=== PATIENT | female | born 1950 | race African-American/Black ===

== ENCOUNTER → 2017-09-05 09:31 | Outpatient (CLI) | payer MEDICARE, OTHER, SELFPAY ==
[2017-09-05 14:33] LABS: Anion Gap 10.5 mEq/L (5-15); Blood Urea Nitrogen 15 mg/dL (7-18); Carbon Dioxide 31 mmol/L (21.0-32.0); Chloride 102 mmol/L (98-107); Creatinine,Serum 0.83 mg/dL (0.55-1.02); Estimated Glomerular Filt Rate 69 ml/min (>60); GFR (African American) 83 ML/MIN (>60); Glucose 109 mg/dL (74-106); Potassium 3.5 mmoL/L (3.5-5.1); Sodium 140 mmol/L (136-145)
[2017-09-06 07:18] LABS: Creatinine, Urine 106.5 mg/dL (Not Estab.); Microalbumin, Urine 81.6 ug/mL (Not Estab.)
== END ==
PROVIDERS: PCP Physician Assistant; Visit Provider Internal Medicine Nephrology
DX: N18.1 Chronic kidney disease, stage 1 (principal); R80.9 Proteinuria, unspecified
CPT/HCPCS: 36415; 80048; 82043

== ENCOUNTER → 2018-12-08 07:00 | Outpatient (CLI) | payer MEDICARE, OTHER, SELFPAY ==
[2018-12-08 07:11] LABS: Microscopic, Urine URINE MICROSCOPIC (MICROSCOPIC)
[2018-12-08 14:02] LABS: Basophils % 0.5 % (0.1-2.0); Eosinophils # 0.4 K/mm3 (0.0-0.4); Eosinophils % 4.9 % (0.1-12.0); Hematocrit 39.8 % (37.0-47.0); Hemoglobin 12.7 g/dL (12.2-16.2); Lymphocytes # 1.9 K/mm3 (0.7-4.5); Lymphocytes % 25.4 % (10-50); Mean Corpuscular HGB Conc 31.8 g/dL (31.8-35.4); Mean Corpuscular Hemoglobin 29.6 pg (27.0-31.2); Mean Corpuscular Volume 92.9 fl (81-99); Mean Platelet Volume 7.9 fl (7.4-10.4); Monocytes # 0.4 K/mm3 (0.1-1.0); Monocytes % 5.1 % (1.7-9.3); Neutrophils # 4.7 K/mm3 (1.8-7.8); Neutrophils % 64.3 % (37.0-80.0); Platelet Count 287 K/mm3 (142-424); Red Blood Count 4.28 M/mm3 (4.20-5.40); Red Cell Distribution Width 13.5 % (11.5-17.5); White Blood Count 7.4 K/mm3 (4.8-10.8)
[2018-12-08 14:09] LABS: Appearance,Urine CLEAR (Clear); Bilirubin,Urine Negative (Negative); Blood, Urine TRACE-I (Negative); Color,Urine YELLOW (Yellow); Glucose,Urine (UA) Negative (Negative); Ketones,Urine Negative (Negative); Leukocyte Esterase,Urine Negative (Negative); Nitrate,Urine Negative (Negative); PH,Urine 5.5 (5.0-8.5); Protein,Urine Negative (Negative); Specific Gravity, Urine 1.025 (1.005-1.030); Urobilinogen,Urine 0.2 EU/dl (0.2)
[2018-12-08 14:16] LABS: Bacteria,Urine 1+ /lpf; RBC,Urine Occasional #/hpf (0-3)
[2018-12-08 14:58] LABS: Albumin Level 3.4 gm/dL (3.4-5.0); Anion Gap 14.6 mEq/L (5-15); Blood Urea Nitrogen 16 mg/dL (7-18); Calcium 8.6 mg/dL (8.5-10.1); Carbon Dioxide 27 mmol/L (21.0-32.0); Chloride 106 mmol/L (98-107); Creatinine,Serum 0.82 mg/dL (0.55-1.02); Estimated Glomerular Filt Rate 69 ml/min (>60); GFR (African American) 84 ML/MIN (>60); Glucose 125 mg/dL (74-106); Phosphorous 4.4 mg/dL (2.4-4.9); Potassium 3.6 mmoL/L (3.5-5.1); Sodium 144 mmol/L (136-145); Uric Acid 6.3 mg/dL (2.6-7.2)
[2018-12-08 16:20] LABS: Hemoglobin A1C 6.8 % (0.0-7.0)
[2018-12-10 05:38] LABS: Creatinine, Urine 117.4 mg/dL (Not Estab.); Microalbumin, Urine 118.8 ug/mL (Not Estab.)
== END ==
PROVIDERS: PCP Physician Assistant; Visit Provider Hospitalist
DX: E11.9 Type 2 diabetes mellitus without complications (principal); R80.9 Proteinuria, unspecified; N18.1 Chronic kidney disease, stage 1
CPT/HCPCS: 36415; 80069; 81001; 82043; 82570; 83036; 84550; 85025

== ENCOUNTER → 2020-11-27 10:13 | Outpatient (CLI) | payer MEDICARE, OTHER, SELFPAY ==
--- NOTE | 2020-11-27 10:17 | NM_ITS ---
APPROVED REPORT Exam: Nuclear Stress Test Indication: HTN, D.M., HYPERLIPIDEMIA, ABN EKG Patient Location: htn, Stress Tech: Farzana Theodore PA Tech:Nadine Farias, ARRT, RT (R)(N) Ht: 5 ft 5 in Wt: 236 lbs Bra Size: 48K HR: 62 bpm BP: 132/70 mmHg BSA: 2.12 m2 BMI: 39.2 History: HTN, D.M., HYPERLIPIDEMIA, ABN EKG Procedure: Patient received a 0.4 mg of intravenous Lexiscan, resting heart rate 62 bpm, resting blood pressure 132/70 mmHg, with Lexiscan maximum heart rate achived was 91 bpm which is % of the maximum predicted heart rate and blood pressure was 132/79 mmHg. MILD C.P. Cardiac Stress and Resting SPECT Images: Cardiac Stress and Resting SPECT images were obtained using technetium 99m Myoview 29.8 mCi stress and 9.69 mCi at rest. Normal EF 72%. No wall motion abnormalities. No reversible or fixed defects. Conclusion: Normal exam. Electronically signed by : Kashmir Koroma MD 12/04/2020 13:12:13
--- NOTE | 2020-11-27 10:17 | CA_ITS ---
APPROVED REPORT Buy Boat Operator: CT Laterality: Bilateral Study Quality: Adequate Indications: right carotid bruit Risk Factors Hypertension: Hyperlipidemia Diabetes Doppler Spectral Velocity Analysis ECA (R) 39.00/ cm/s ECA (L) 35.00/ cm/s dICA (R) 64.90/28.50 cm/s dICA (L) 87.10/37.10 cm/s Vic (R) 61.10/26.50 cm/s Vic (L) 67.40/32.10 cm/s pICA (R) 34.80/10.70 cm/s pICA (L) 48.10/16.60 cm/s dCCA (R) 79.20/19.50 cm/s dCCA (L) 42.60/13.60 cm/s pCCA (R) 86.70/17.00 cm/s pCCA (L) 52.60/11.90 cm/s Vert (R) 26.90/ cm/s Vert (L) 45.90/ cm/s ICA/CCA 0.82 ICA/CCA 2.04 Findings Duplex evaluation demonstrates stenosis of the right proximal internal carotid artery <20% with PSV <140 cm/sec, EDV <100 cm/sec, and IC/CC Ratio <4.0. Duplex evaluation demonstrates stenosis of the left proximal internal carotid artery <20% with PSV <140 cm/sec, EDV <100 cm/sec, and IC/CC Ratio <4.0. Duplex evaluation demonstrates antegrade flow of the bilateral Vertebral Arteries. Conclusion Duplex evaluation demonstrates stenosis of the right proximal internal carotid artery <20% with PSV <140 cm/sec, EDV <100 cm/sec, and IC/CC Ratio <4.0. Duplex evaluation demonstrates stenosis of the left proximal internal carotid artery <20% with PSV <140 cm/sec, EDV <100 cm/sec, and IC/CC Ratio <4.0. Duplex evaluation demonstrates antegrade flow of the bilateral Vertebral Arteries. Electronically signed by : Kashmir Koroma MD 11/27/2020 15:53:43
--- NOTE | 2020-11-27 10:17 | CA_ITS ---
APPROVED REPORT Exam: Pharmacologic Technologist: Farzana Theodore Ht: 5 ft 5 in Wt: 236 lbs BSA: 2.12 m2 HR: 62 bpm BP: 132/70 mmHg Indications: Abnormal ekg, Heart murmur, bilateral bruit Medical History Medications: Aspirin,,,,, Pravastatin,,,,, Metformin,,,,, Losartan,,,,, Allopurinol,,,,, Albuterol,,,,, CHlorthalidone,,,,, MiraLAX,,,,, Multivitamin,,,,, Levothyoxine,,,,, Stress Test Details Test: LEXISCAN HR Resting HR: 67 bpm Max Heart Rate (APMHR): 150.133046 bpm Max HR Achieved: 93 bpm Target HR (85% APMHR): 127.282763 bpm % of APMHR: 62.00 Recovery HR: 68 bpm BP Resting BP: 132/70 mmHg Max BP: 132/70 mmHg Recovery BP: 125.0/68.0 mmHg ECG Clinical Exercise duration: 04:04 min Highest Stage Achieved: Exercise capacity: 1.0 METs Stress ECG Conclusion Symptoms: Chest burning present, mild shortness of air Arrhythmias/Ectopy: PVC noted ST-T Changes: < 1.[address] segment changes. Electronically signed by : Demetrio Sorto, 12/01/2020 08:36:24
--- NOTE | 2020-11-27 14:00 | HMH.ITSHM ---
Current Home Medications as stated by this patient Ban Patton or service support representative. []PRAVASTATIN SYNTHROID METFORMIN LOSARTAN ALLOPURINOL ASA VITAMINS
== END ==
PROVIDERS: PCP Nurse Practitioner Family; Visit Provider Nurse Practitioner Family
DX: R09.89 Other specified symptoms and signs involving the circulatory and respiratory systems (principal); E11.8 Type 2 diabetes mellitus with unspecified complications; E78.5 Hyperlipidemia, unspecified; I10 Essential (primary) hypertension; R01.1 Cardiac murmur, unspecified; R06.00 Dyspnea, unspecified; R60.9 Edema, unspecified; Z79.84 Long term (current) use of oral hypoglycemic drugs; R94.31 Abnormal electrocardiogram [ECG] [EKG]
CPT/HCPCS: 78452; 93017; 93306; 93880; A9502; J2785

== ENCOUNTER → 2020-12-29 07:47 | Outpatient (CLI) | payer MEDICARE, OTHER, SELFPAY ==
[2020-12-29 07:50] LABS: Microscopic, Urine URINE MICROSCOPIC (MICROSCOPIC)
[2020-12-29 13:51] LABS: Appearance,Urine CLEAR (Clear); Basophils # 0.1 K/mm3 (0-0.2); Basophils % 0.9 % (0.1-2.0); Bilirubin,Urine Negative (Negative); Blood, Urine TRACE-I (Negative); Color,Urine YELLOW (Yellow); Eosinophils # 0.4 K/mm3 (0.0-0.4); Eosinophils % 5.3 % (0.1-12.0); Glucose,Urine (UA) Negative (Negative); Hematocrit 43.4 % (37.0-47.0); Hemoglobin 13.4 g/dL (12.2-16.2); Ketones,Urine Negative (Negative); Leukocyte Esterase,Urine Negative (Negative); Lymphocytes # 1.5 K/mm3 (0.7-4.5); Lymphocytes % 18.7 % (10-50); Mean Corpuscular HGB Conc 30.9 g/dL (31.8-35.4); Mean Corpuscular Hemoglobin 29.5 pg (27.0-31.2); Mean Corpuscular Volume 95.4 fl (81-99); Monocytes # 0.4 K/mm3 (0.1-1.0); Monocytes % 5.1 % (1.7-9.3); Neutrophils # 5.7 K/mm3 (1.8-7.8); Neutrophils % 69.9 % (37.0-80.0); Nitrate,Urine Negative (Negative); PH,Urine 6.5 (5.0-8.5); Platelet Count 308 K/mm3 (142-424); Protein,Urine 1+ (Negative); Red Blood Count 4.55 M/mm3 (4.20-5.40); Red Cell Distribution Width 14.3 % (11.5-17.5); Urobilinogen,Urine 0.2 EU/dl (0.2); White Blood Count 8.2 K/mm3 (4.8-10.8)
[2020-12-29 13:58] LABS: Albumin Level 4.1 g/dl (3.5-5.0); Anion Gap 9.7 mEq/L (5-15); Blood Urea Nitrogen 14 mg/dl (7-17); Carbon Dioxide 32 mmol/L (22.0-30.0); Chloride 102 mmol/L (98-107); Estimated Glomerular Filt Rate 83 ml/min (>60); GFR (African American) 100 ML/MIN (>60); Glucose 119 mg/dl (74-100); Phosphorous 3.9 mg/dl (2.5-4.5); Potassium 3.7 mmoL/L (3.5-5.1); Sodium 140 mmol/L (136-145)
[2020-12-29 13:59] LABS: Creatinine,Urine Random 125 mg/dL (Not Estab.)
[2020-12-29 14:04] LABS: Amorphous Sediment,Urine Trace /lpf
[2020-12-29 14:20] LABS: Hemoglobin A1C 6.5 % (4.0-6.0)
== END ==
PROVIDERS: Visit Provider Nurse Practitioner
DX: N18.2 Chronic kidney disease, stage 2 (mild) (principal); R80.9 Proteinuria, unspecified; E11.9 Type 2 diabetes mellitus without complications; Z79.84 Long term (current) use of oral hypoglycemic drugs
CPT/HCPCS: 36415; 80069; 81001; 82570; 83036; 84155; 85025

== ENCOUNTER → 2021-06-19 12:06 | Outpatient (POV) | payer MEDICARE, OTHER, SELFPAY | PROVIDERS: Visit Provider Dermatology | DX: Z00.00 Encounter for general adult medical examination without abnormal findings (principal) ==

== ENCOUNTER → 2021-10-26 09:43 | Outpatient (CLI) | payer MEDICARE, OTHER, SELFPAY ==
[2021-10-26 10:53] LABS: Chloride 97 mmol/L (98-107); Sodium 134 mmol/L (136-145)
[2021-10-26 10:54] LABS: Potassium 3.7 mmoL/L (3.5-5.1)
[2021-10-26 10:56] LABS: Alanine Aminotransferase 23 U/L (12-78); Alkaline Phosphatase 122 U/L (38-126); Anion Gap 9.7 mEq/L (5-15); Aspartate Amino Transferase 32 U/L (14-36); Bilirubin,Direct 0.3 mg/dl (0.0-0.4); Bilirubin,Indirect 0.2 mg/dL (0.0-0.9); Bilirubin,Total 0.5 mg/dl (0.2-1.3); Bilirubin,Unconjugated 0.1 mg/dL (0.0-1.1); Blood Urea Nitrogen 18 mg/dl (7-17); Calcium 8.5 mg/dl (8.4-10.2); Carbon Dioxide 31 mmol/L (22.0-30.0); Cholesterol 198 mg/dl (140-200); Estimated Glomerular Filt Rate 71 ml/min (>60); GFR (African American) 86 ML/MIN (>60); Glucose 95 mg/dl (74-100); Total Protein,Serum 6.5 g/dl (6.3-8.2); Triglycerides 83 mg/dl (30-150); VLDL Cholesterol 17 mg/dL (0-40)
[2021-10-26 10:57] LABS: HDL Cholesterol 49 mg/dl (40-60)
[2021-10-26 11:08] LABS: Direct LDL Cholesterol 115.67 mg/dL (100-129)
== END ==
PROVIDERS: Visit Provider Internal Medicine
DX: E78.2 Mixed hyperlipidemia (principal); I10 Essential (primary) hypertension; I65.29 Occlusion and stenosis of unspecified carotid artery; R06.00 Dyspnea, unspecified; R09.89 Other specified symptoms and signs involving the circulatory and respiratory systems; R94.31 Abnormal electrocardiogram [ECG] [EKG]
CPT/HCPCS: 36415; 80048; 80061; 80076

== ENCOUNTER → 2022-04-04 09:00 | Outpatient (CLI) | payer MEDICARE, OTHER, SELFPAY ==
--- NOTE | 2022-04-04 09:05 | XR_ITS ---
FINAL REPORT CLINICAL HISTORY: pain, possible bone spur. FINDINGS: RIGHT FOOT Three weight-bearing views of the right foot demonstrate no acute fracture or dislocation. The visualized joint spaces are intact. There are calcaneal spurs. The soft tissues are unremarkable. IMPRESSION: No acute bony abnormality. Calcaneal spurs. Reviewed, Interpreted and Dictated by Jose Lawrence III, MD Transcribed by Erin Arnett Authenticated and [facility]
== END ==
PROVIDERS: Visit Provider Podiatrist
DX: M79.671 Pain in right foot (principal)
CPT/HCPCS: 73630

== ENCOUNTER → 2022-05-13 06:43 | Outpatient (CLI) | payer MEDICARE, OTHER, SELFPAY ==
[2022-05-13 19:41] LABS: Basophils # 0.1 K/mm3 (0-0.2); Basophils % 0.9 % (0.1-2.0); Eosinophils # 0.3 K/mm3 (0.0-0.4); Eosinophils % 3.4 % (0.1-12.0); Hematocrit 43.5 % (37.0-47.0); Hemoglobin 13.7 g/dL (12.2-16.2); Lymphocytes # 1.6 K/mm3 (0.7-4.5); Lymphocytes % 20.1 % (10-50); Mean Corpuscular HGB Conc 31.4 g/dL (31.8-35.4); Mean Corpuscular Hemoglobin 30.6 pg (27.0-31.2); Mean Corpuscular Volume 97.3 fl (81-99); Monocytes # 0.6 K/mm3 (0.1-1.0); Monocytes % 7.3 % (1.7-9.3); Neutrophils # 5.5 K/mm3 (1.8-7.8); Neutrophils % 68.2 % (37.0-80.0); Platelet Count 361 K/mm3 (142-424); Red Blood Count 4.47 M/mm3 (4.20-5.40); Red Cell Distribution Width 14.3 % (11.5-17.5); White Blood Count 8.1 K/mm3 (4.8-10.8)
[2022-05-13 20:01] LABS: Alanine Aminotransferase 22 U/L (12-78); Albumin/Globulin Ratio 1.5 (1.1-1.8); Alkaline Phosphatase 142 U/L (38-126); Anion Gap 15.4 mEq/L (5-15); Aspartate Amino Transferase 45 U/L (14-36); Bilirubin,Total 0.2 mg/dl (0.2-1.3); Blood Urea Nitrogen 25 mg/dl (7-17); Calcium 9.1 mg/dl (8.4-10.2); Carbon Dioxide 28 mmol/L (22.0-30.0); Chloride 100 mmol/L (98-107); Chol/HDL Ratio 3.1 (1-3.5); Cholesterol 163 mg/dl (140-200); Estimated Glomerular Filt Rate 71 ml/min (>60); GFR (African American) 86 ML/MIN (>60); Globulin 2.6 g/dL (1.3-3.2); Glucose 102 mg/dl (74-100); HDL Cholesterol 53 mg/dl (40-60); Potassium 4.4 mmoL/L (3.5-5.1); Sodium 139 mmol/L (136-145); Total Protein,Serum 6.6 g/dl (6.3-8.2); Triglycerides 94 mg/dl (30-150); VLDL Cholesterol 19 mg/dL (0-40)
[2022-05-13 20:12] LABS: Direct LDL Cholesterol 74.55 mg/dL (100-129)
[2022-05-13 20:31] LABS: Thyroid Stimulating Hormone 2.19 uIU/mL (0.465-4.68)
[2022-05-13 21:54] LABS: Hemoglobin A1C 6.1 % (4.0-6.0)
== END ==
PROVIDERS: PCP Family Medicine; Visit Provider Family Medicine
DX: I10 Essential (primary) hypertension (principal); E11.65 Type 2 diabetes mellitus with hyperglycemia; Z00.00 Encounter for general adult medical examination without abnormal findings; R53.83 Other fatigue; Z79.84 Long term (current) use of oral hypoglycemic drugs
CPT/HCPCS: 80053; 80061; 83036; 84443; 85025

== ENCOUNTER → 2022-09-09 11:31 | Outpatient (CLI) | payer MEDICARE, OTHER, SELFPAY ==
[2022-09-09 18:03] LABS: Hemoglobin A1C 6.3 % (4.0-6.0)
[2022-09-09 18:10] LABS: Creatinine,Urine Random 124 mg/dL (Not Estab.)
[2022-09-09 18:50] LABS: Microalbumin/Creatinine Ratio 630.4
== END ==
PROVIDERS: PCP Family Medicine; Visit Provider Family Medicine
DX: E11.65 Type 2 diabetes mellitus with hyperglycemia (principal); Z79.899 Other long term (current) drug therapy
CPT/HCPCS: 82043; 82570; 83036

== ENCOUNTER → 2022-12-17 08:40 | Outpatient (POV) | payer MEDICARE, OTHER, SELFPAY | PROVIDERS: Visit Provider Dermatology | DX: Z00.00 Encounter for general adult medical examination without abnormal findings (principal) ==

== ENCOUNTER → 2022-12-30 09:28 | Outpatient (CLI) | payer MEDICARE, OTHER, SELFPAY ==
[2022-12-30 10:29] LABS: Basophils # 0.1 K/mm3 (0-0.2); Basophils % 0.7 % (0.1-2.0); Eosinophils # 0.3 K/mm3 (0.0-0.4); Eosinophils % 3.9 % (0.1-12.0); Hematocrit 42.6 % (37.0-47.0); Hemoglobin 13.6 g/dL (12.2-16.2); Lymphocytes # 1.7 K/mm3 (0.7-4.5); Lymphocytes % 21.4 % (10-50); Mean Corpuscular Hemoglobin 29.9 pg (27.0-31.2); Mean Corpuscular Volume 93.7 fl (81-99); Mean Platelet Volume 7.5 fl (7.4-10.4); Monocytes # 0.4 K/mm3 (0.1-1.0); Monocytes % 5.2 % (1.7-9.3); Neutrophils # 5.5 K/mm3 (1.8-7.8); Neutrophils % 68.9 % (37.0-80.0); Platelet Count 314 K/mm3 (142-424); Red Blood Count 4.55 M/mm3 (4.20-5.40); Red Cell Distribution Width 14.1 % (11.5-17.5)
[2022-12-30 11:03] LABS: Chloride 98 mmol/L (98-107); Potassium 3.5 mmoL/L (3.5-5.1); Sodium 140 mmol/L (136-145)
[2022-12-30 11:05] LABS: Blood Urea Nitrogen 11 mg/dl (7-17); Estimated Glomerular Filt Rate 71 ml/min (>60); GFR (African American) 85 ML/MIN (>60)
[2022-12-30 11:06] LABS: Alanine Aminotransferase 25 U/L (12-78); Albumin Level 4.1 g/dl (3.5-5.0); Alkaline Phosphatase 113 U/L (38-126); Anion Gap 13.5 mEq/L (5-15); Aspartate Amino Transferase 29 U/L (14-36); Bilirubin,Indirect 0.5 mg/dL (0.0-0.9); Bilirubin,Total 0.5 mg/dl (0.2-1.3); Bilirubin,Unconjugated 0.5 mg/dL (0.0-1.1); Calcium 9.3 mg/dl (8.4-10.2); Carbon Dioxide 32 mmol/L (22.0-30.0); Cholesterol 142 mg/dl (140-200); Glucose 106 mg/dl (74-100); Total Protein,Serum 6.5 g/dl (6.3-8.2); Triglycerides 104 mg/dl (30-150); VLDL Cholesterol 21 mg/dL (0-40)
[2022-12-30 11:07] LABS: Chol/HDL Ratio 2.6 (1-3.5); HDL Cholesterol 54 mg/dl (40-60); Magnesium 1.5 mg/dl (1.6-2.3)
[2022-12-30 11:17] LABS: Direct LDL Cholesterol 69.87 mg/dL (100-129)
[2022-12-30 11:23] LABS: Free T4 (Free Thyroxine) 1.22 ng/dl (0.78-2.19)
[2022-12-30 11:37] LABS: Thyroid Stimulating Hormone 1.34 uIU/mL (0.465-4.68)
== END ==
PROVIDERS: PCP Family Medicine; Visit Provider Physician Assistant
DX: E78.2 Mixed hyperlipidemia (principal); I07.1 Rheumatic tricuspid insufficiency; I10 Essential (primary) hypertension; I65.23 Occlusion and stenosis of bilateral carotid arteries; R06.00 Dyspnea, unspecified; R07.9 Chest pain, unspecified; R60.9 Edema, unspecified
CPT/HCPCS: 36415; 80048; 80061; 80076; 83735; 84439; 84443; 85025

== ENCOUNTER → 2023-01-27 06:39 | Outpatient (CLI) | payer MEDICARE, OTHER, SELFPAY ==
--- NOTE | 2023-01-27 06:47 | NM_ITS ---
APPROVED REPORT Exam: Nuclear Stress Test Indication: OBESITY, HTN, DM, HYPERLIPIDEMIA, SOB, ABN EKG Patient Location: Outpatient Stress Tech: Farzana MURDOCK Tech:CARLOS Ordaz RT (R)(N)(M) Ht: 5 ft 4 in Wt: 241 lbs Bra Size: K HR: 57 bpm BP: 139/70 mmHg BSA: 2.12 m2 TID: 1.11 BMI: 41.3 History: OBESITY, HTN, DM, HYPERLIPIDEMIA, SOB, ABN EKG Procedure: Patient received 0.4 mg of intravenous Lexiscan, resting heart rate 57 bpm, resting blood pressure 139/70 mmHg, with Lexiscan maximum heart rate achieved was 93 bpm which is 63 % of the maximum predicted heart rate and blood pressure was 148/70 mmHg. With Lexiscan, patient denied any complaint of chest pain. Cardiac Stress and Resting SPECT Images: Cardiac Stress and Resting SPECT images were obtained using technetium 99m Myoview 30.1 mCi stress and 10.37 mCi at rest. Resting and stress imaging in both supine and prone images demonstrated a medium-sized, mild, reversible perfusion defect in the distal anterior and anteroapical regions. Gated imaging demonstrates normal global LV systolic function. There is mild hypokinesis of the distal anterior LV wall. LVEF is calculated at 72%. Conclusion: Medium-sized, mild, reversible perfusion defect in the distal anterior and anteroapical regions. Gated imaging demonstrates normal global LV systolic function. There is mild hypokinesis of the distal anterior LV wall. LVEF is calculated at 72%. Electronically signed by : Malinda Campbell, 01/27/2023 16:45:14
--- NOTE | 2023-01-27 09:28 | CA_ITS ---
APPROVED REPORT Exam: Pharmacologic Technologist: Farzana Theodore Ht: 5 ft 5 in Wt: 236 lbs BSA: 2.12 m2 HR: 57 bpm BP: 139/70 mmHg Rhythm: Sinus bradycardia Indications: Abnormal ekg, Chest pain Medical History Medications: Amlodipine,,,,, Aspirin,,,,, Pravastatin,,,,, Metformin,,,,, Synthroid,,,,, Losartan,,,,, Allopurinol,,,,, Multivitamin,,,,, PSYLLIUM,,,,, CHlorALIDONE,,,,, Stress Test Details Test: LEXISCAN HR Resting HR: 59 bpm Max Heart Rate (APMHR): 148 bpm Max HR Achieved: 97 bpm Target HR (85% APMHR): 126 bpm % of APMHR: 66 Recovery HR: 72 bpm BP Resting BP: 139.0/70.0 mmHg Max BP: 148.0/70.0 mmHg Recovery BP: 132.0/71.0 mmHg ECG Resting ECG: Sinus bradycardia Stress ECG: No change Arrhythmia: Occasional PVCs Recovery ECG: No change Recovery Arrhythmia: None Clinical Reason for Termination: Palpitations Exercise duration: n/a min Highest Stage Achieved: Stress ECG Conclusion Symptoms: Palpitations Arrhythmias/Ectopy: Occasional PVC ST-T Changes: No ST changes Conclusion: The patient developed palpitations following administration of regadenoson. There were no ST-changes with stress. Occasional PVCs were present during stress. Unremarkable pharmacologic stress ECG. Myoview images are reported separately. Test Summary REST . . . . . . . Resting REST 02:05 . . 59 . 139/ 70 . . Stage 1 . . . . . . . Myoview Injected Stage 1 01:00 . . 63 . . . . Stage 2 01:00 . . 93 . . . . Stage 3 01:00 . . 81 . 148/ 70 . . Stage 4 01:00 . . 75 . 135/ 72 . Stop exercise at 04:00 RECOVERY 01:00 . . 79 . 133/ 67 . . RECOVERY 02:00 . . 70 . 133/ 67 . . RECOVERY 03:00 . . 70 . 125/ 70 . . RECOVERY 03:55 . . 67 . 132/ 71 . . Electronically signed by : Malinda Campbell, 01/27/2023 16:26:34
== END ==
PROVIDERS: PCP Family Medicine; Visit Provider Physician Assistant
DX: E78.2 Mixed hyperlipidemia (principal); I07.1 Rheumatic tricuspid insufficiency; I10 Essential (primary) hypertension; I65.23 Occlusion and stenosis of bilateral carotid arteries; R06.00 Dyspnea, unspecified; R07.9 Chest pain, unspecified; R60.9 Edema, unspecified
CPT/HCPCS: 78452; 93017; 93306; A9502; J2785

== ENCOUNTER 2023-02-28 10:32 | Observation (INO) | payer MEDICARE, OTHER, SELFPAY ==
[2023-02-28] VITALS (22 sets, daily range): BP systolic 95–138; BP diastolic 55–87; PULSE 48–71; RESP 16–20; TEMP 35.8–36.9; O2SAT 91–99; BMI 39.4; BMI 38.7
--- NOTE | 2023-02-28 07:06 | IR_ITS ---
APPROVED REPORT Patient Location: Outpatient Hands Parter: CARLOS Donato RT (R) PROCEDURES Left heart catheterization Left ventriculogram Selective coronary angiogram INDICATION High risk abnormal Myoview, Angina pectoris Informed consent was obtained prior to the procedure. COMPLICATIONS None Estimated Blood Loss: Less than 10 mls TECHNIQUE One percent lidocaine used to anesthetize the right anterior aspect of the wrist. The right radial artery was accessed via the Seldinger technique. A 6 Belgian sheath was placed in the right radial artery. 150 mg magnesium sulfate, 800 mcg of nitroglycerin, 1mg Lidocaine and 5000 U Heparin were given through the arterial sheath. The papa catheter was also used to perform left heart catheterization, left ventriculogram and selective coronary angiogram. At the end of the procedure the sheath was removed good hemostasis was achieved using Traclet band, patient was transferred to the postop holding area in stable condition. ANGIOGRAPHIC RESULTS The left main artery Normal The left anterior descending artery Normal The circumflex artery Dominant normal The right coronary artery Normal The CHENG ventriculogram reveals 65% The left ventricular end-diastolic pressure 15 mmHg IMPRESSION Normal coronary arteries Normal ejection fraction Borderline LVEDP Anterior defect secondary to breast attenuation PLAN 1. Continue medical management and evaluation of noncardiac symptoms Electronically signed by : Demetrio Sorto MD 02/28/2023 09:41:39
[2023-02-28 08:35] LABS: Basophils % 0.4 % (0.1-2.0); Eosinophils # 0.3 K/mm3 (0.0-0.4); Eosinophils % 4.2 % (0.1-12.0); Hematocrit 43.5 % (37.0-47.0); Hemoglobin 13.6 g/dL (12.2-16.2); Lymphocytes # 1.5 K/mm3 (0.7-4.5); Lymphocytes % 18.2 % (10-50); Mean Corpuscular HGB Conc 31.3 g/dL (31.8-35.4); Mean Corpuscular Hemoglobin 29.4 pg (27.0-31.2); Mean Corpuscular Volume 93.9 fl (81-99); Mean Platelet Volume 7.8 fl (7.4-10.4); Monocytes # 0.5 K/mm3 (0.1-1.0); Monocytes % 6.7 % (1.7-9.3); Neutrophils # 5.6 K/mm3 (1.8-7.8); Neutrophils % 70.4 % (37.0-80.0); Platelet Count 302 K/mm3 (142-424); Red Blood Count 4.63 M/mm3 (4.20-5.40); Red Cell Distribution Width 14.2 % (11.5-17.5)
[2023-02-28 08:37] LABS: Chloride 104 mmol/L (98-107); Potassium 4.1 mmoL/L (3.5-5.1); Sodium 140 mmol/L (136-145)
[2023-02-28 08:40] LABS: Anion Gap 10.1 mEq/L (5-15); Blood Urea Nitrogen 23 mg/dl (7-17); Carbon Dioxide 30 mmol/L (22.0-30.0); Creatinine Clearance Estimated 86 mL/min (50-200); Estimated Glomerular Filt Rate 62 ml/min (>60); GFR (African American) 74 ML/MIN (>60); Glucose 110 mg/dl (74-100)
--- NOTE | 2023-02-28 10:59 | PC.NURSE ---
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
--- NOTE | 2023-02-28 12:11 | EXP.HP ---
History of Present Illness *Admission Date: 02/28/23 *Reason for visit:: CAD, abnormal stress test, s/p [facility] *History of present illness: Ms. Patton is a pleasant 72-year-old female with history of diabetes, hypertension, gout, hypothyroid, chest pain. Has been following with cardiology. Had an abnormal stress test performed on 6 5. Cardiology recommended left heart cath given presence of abnormal stress test, atypical angina, abnormal EKG, and risk factors from diabetes. Patient brought in for left heart cath today. Tolerated procedure well. Finding of normal coronary arteries on PCI. Recommended continuing medical management. Patient however cannot drive for the next 24 hours after anesthesia. She has no way to get her in her car home this evening. Necessitates admission for observation given history of SVT and procedure today. Currently does not have any chest pain. Stable on room air. No nausea or vomiting. No complaints. [facility] Disclaimer: The information contained in this section may have been updated after the patient was seen, as this information can be updated by other users. Medical History Cardiac murmur Chest pain Diabetes type 2, controlled Dyspnea Edema HLD (hyperlipidemia) HTN (hypertension) Right carotid bruit Tricuspid regurgitation Surgical History History of hysterectomy Family History Diabetes Mother Father Kidney disease Son Cancer Sister Social History Smoking Status: Never smoker second hand exposure: No alcohol intake: never substance use type: denies use current occupational status: employed Travel in the last 8 weeks: None household members: none housing: house lives independently: Yes marital status: single Meds Home Medications and Allergies Home Medications Medication Instructions Recorded Confirmed Type aspirin 81 mg tablet,delayed 81 mg PO DAILY Heart Disease 11/20/20 02/28/23 History release (Adult Low Dose Aspirin) multivitamin (Daily Multi-Vitamin 1 tab PO DAILY Supplement 11/20/20 02/28/23 History tablet) psyllium 1 packet PO DAILY Constipation 07/01/22 02/28/23 History metformin 750 mg tablet,extended 750 mg PO BID Diabetes 09/09/22 02/28/23 History release 24 hr allopurinol 100 mg tablet 200 mg PO DAILY gout 02/28/23 02/28/23 History chlorthalidone 25 mg tablet 25 mg PO DAILY High Blood Pressure 02/28/23 02/28/23 History levothyroxine 75 mcg tablet 75 mcg PO DAILY hypothyroidism 02/28/23 02/28/23 History (Synthroid) losartan 100 mg tablet 100 mg PO DAILY High Blood Pressure 02/28/23 02/28/23 History magnesium oxide 400 mg (241.3 mg 400 mg PO DAILY Supplement 02/28/23 02/28/23 History magnesium) tablet metoprolol succinate 50 mg 50 mg PO BID High Blood Pressure 02/28/23 02/28/23 History tablet,extended release 24 hr (Toprol XL) pravastatin 20 mg tablet 20 mg PO HS Cholesterol 02/28/23 02/28/23 History New Prescriptions to Start Prescriptions: Allergies Allergy/AdvReac Type Severity Reaction Status Date / Time No Known Allergies Allergy Verified 02/28/23 08:23 Exam Data for Last 24 hours Vital signs and Labs for Last 24 Hours: Pulse Resp BP Pulse Ox O2 Del Method 55 L 16 115/66 97 Room Air 02/28/23 10:45 02/28/23 10:45 02/28/23 10:45 02/28/23 10:45 02/28/23 11:00 Laboratory Results - last 24 hr 02/28/23 08:20: WBC 8.0, RBC 4.63, Hgb 13.6, Hct 43.5, MCV 93.9, MCH 29.4, MCHC 31.3 L, RDW 14.2, Plt Count 302, MPV 7.8, Neut % (Auto) 70.4, Lymph % (Auto) 18.2, [place] % (Auto) 6.7, Eos % (Auto) 4.2, Baso % (Auto) 0.4, Neut # (Auto) 5.6, Lymph # (Auto) 1.5, [place] # (Auto) 0.5, Eos # (Auto) 0.3, Baso # (Auto) 0.0, Sodium 140, Potassium 4.1, Chloride 104, Carbon Dioxide 30, Anion Gap 10.1, B
--- NOTE | 2023-02-28 12:24 | PC.NURSE ---
Last 2 ml of air removed at 11:40 with no issues. 2X2 And tegaderm placed patient educated on what not to do with her right arm.
--- NOTE | 2023-02-28 12:41 | PC.NURSE ---
Oral temp taken at 97.6
[2023-02-28 13:05] LABS: Thyroid Stimulating Hormone 1.72 uIU/mL (0.465-4.68)
[2023-02-28 13:16] LABS: Hemoglobin A1C 6.5 % (4.0-6.0)
[2023-02-28 16:01] LABS: POC Glucose,Bedside 69 (70-110)
[2023-02-28 16:27] LABS: POC Glucose,Bedside 67 (70-110)
[2023-02-28 17:55] LABS: POC Glucose,Bedside 107 (70-110)
[2023-02-28 19:59] LABS: Coronavirus 19, PCR Not Detected (NotDetected); Influenza A, PCR Not Detected (NotDetected); Influenza B, PCR Not Detected (NotDetected)
[2023-02-28 20:26] LABS: POC Glucose,Bedside 119 (70-110)
[2023-03-01 00:17] VITALS: PULSE 63
--- NOTE | 2023-03-01 00:54 | PC.NURSE ---
asked pt twice, other tech asked once, she refused all times stating she had one this morning before she left her house, she would rather wait till she got home to take one. Nurse was notified of refusal.
[2023-03-01 04:00] VITALS: BP 110/68; PULSE 57; PULSE 60; RESP 16; TEMP 36.7; O2SAT 96; BMI 39.2
--- NOTE | 2023-03-01 05:00 | PC.NURSE ---
PATIENT HAS HAD A QUIET AND UNEVENTFUL NIGHT. DENIES CP/SOA/DISCOMFORT. DRSG TO RIGHT RADIAL C/D/I. NO S/S OF COMPLICATIONS. NSR/SINUS DUSTY ON TELEMETRY.
[2023-03-01 06:14] LABS: POC Glucose,Bedside 120 (70-110)
--- NOTE | 2023-03-01 06:55 | EXP.DC.SUM ---
General Admission date:: 02/28/23 Discharge date: 03/01/23 HPI HPI HPI: Ms. Patton is a pleasant 72-year-old female with history of diabetes, hypertension, gout, hypothyroid, chest pain. Has been following with cardiology. Had an abnormal stress test performed on 01 27. Cardiology recommended left heart cath given presence of abnormal stress test, atypical angina, abnormal EKG, and risk factors from diabetes. Patient brought in for left heart cath today. Tolerated procedure well. Finding of normal coronary arteries on PCI. Recommended continuing medical management. Patient however cannot drive for the next 24 hours after anesthesia. She has no way to get her in her car home this evening. Necessitates admission for observation given history of SVT and procedure today. Currently does not have any chest pain. Stable on room air. No nausea or vomiting. No complaints. Hospital Course Hospital Course Hospital Course: 72yo F with history of diabetes, obesity, hypothyroid, gout, CAD, HTN who recently had a stress test with abnormal findings. Brought in for schedule LHC/PCI for further evaluation and treatment. Patient necessitated overnight observation due to anesthesia side effects and inability to drive. Remained stable overnight. No complaints. Insertion site clean dry and intact in right radial approach. Problems as follows: CAD S/p Left heart cath/PCI Hypertension Hyperlipidemia - s/p PCI. cardiology consulted. had abnormal stress test. Coronary angiogram with normal coronaries. No intervention. Continue medical management. Continued home regimen as follows: ASA 81mg daily, chlorthalidone 25mg PO daily, losartan 100mg daily, metoprolol succinate 50mg BID, pravastatin 20mg HS. no new medications at discharge. DM: A1C 6.5 on admission. Held metformin in post procedure setting, resume at tomorrow at home. Glucose consistently well controlled less than 130. No insulin needed during admission Hypothyroid: TSH 1.72, continue home levothyroxine 75mcg daily Gout: Continue home allopurinol 200mg daily Stable for discharge home. Follow-up with Dr. Browning and Dr. Sorto within the next 2 weeks. Exam Data for Last 24 hours Vital signs and Labs for Last 24 Hours: Temp Pulse Resp BP Pulse Ox O2 Del Method 98.1 F 60 16 110/68 96 Room Air 03/01/23 04:00 03/01/23 04:00 03/01/23 04:00 03/01/23 04:00 03/01/23 04:00 03/01/23 06:23 Laboratory Results - last 24 hr 02/28/23 08:20: WBC 8.0, RBC 4.63, Hgb 13.6, Hct 43.5, MCV 93.9, MCH 29.4, MCHC 31.3 L, RDW 14.2, Plt Count 302, MPV 7.8, Neut % (Auto) 70.4, Lymph % (Auto) 18.2, [place] % (Auto) 6.7, Eos % (Auto) 4.2, Baso % (Auto) 0.4, Neut # (Auto) 5.6, Lymph # (Auto) 1.5, [place] # (Auto) 0.5, Eos # (Auto) 0.3, Baso # (Auto) 0.0, Sodium 140, Potassium 4.1, Chloride 104, Carbon Dioxide 30, Anion Gap 10.1, BUN 23 H, Creatinine 0.90, Estimated Creat Clear 86, Estimated GFR 62, Est GFR ( Amer) 74, Glucose 110 H, Calcium 9.0 02/28/23 08:30: Hemoglobin A1c 6.5 H, TSH 1.72 02/28/23 15:54: POC Glucose 69 L 02/28/23 16:21: POC Glucose 67 L 02/28/23 17:49: POC Glucose 107 02/28/23 19:45: SARS-CoV-2 (PCR) Not detected, Influenza A Untype (PCR) Not detected, Influenza Type B (PCR) Not detected 02/28/23 20:19: POC Glucose 119 H 03/01/23 06:05: POC Glucose 120 H I & O for Last 24 hours: Intake & Output 02/26/23 02/27/23 02/28/23 03/01/23 23:59 23:59 23:59 23:59 Intake Total 920 / 920 Output Total 101 / 101 Balance 919 / 919 -101 / -101 Weight 105.432 kg 106.776 kg Constitutional Constitutional: no acute distress and obese *Routine HEENT Exam Head: Present normocephalic Eye: Present EOMI and PERRL ENT: Present mucous membranes moist *Routine Neck Exam Neck: Present supple; Absent lymphadenopathy *Routine Respiratory Exam Respiratory: Present CTA bilaterally *Routine Cardiovascular Exam Cardiovascular: Present RRR *Routine Abdominal Exam Abdo
[2023-03-01 07:13] VITALS: BP 134/67; PULSE 61; RESP 18; TEMP 36.9; O2SAT 98
[2023-03-01 08:05] LABS: Basophils % 0.3 % (0.1-2.0); Eosinophils # 0.3 K/mm3 (0.0-0.4); Eosinophils % 4.3 % (0.1-12.0); Hematocrit 43.2 % (37.0-47.0); Hemoglobin 13.3 g/dL (12.2-16.2); Lymphocytes # 1.5 K/mm3 (0.7-4.5); Mean Corpuscular HGB Conc 30.8 g/dL (31.8-35.4); Mean Corpuscular Volume 94.1 fl (81-99); Monocytes # 0.6 K/mm3 (0.1-1.0); Monocytes % 7.6 % (1.7-9.3); Neutrophils # 5.5 K/mm3 (1.8-7.8); Neutrophils % 68.9 % (37.0-80.0); Platelet Count 294 K/mm3 (142-424); Red Blood Count 4.59 M/mm3 (4.20-5.40); Red Cell Distribution Width 14.3 % (11.5-17.5); White Blood Count 7.9 K/mm3 (4.8-10.8)
[2023-03-01 08:28] LABS: Alanine Aminotransferase 30 U/L (12-78); Albumin Level 4.4 g/dl (3.5-5.0); Albumin/Globulin Ratio 1.3 (1.1-1.8); Alkaline Phosphatase 106 U/L (38-126); Anion Gap 12.1 mEq/L (5-15); Aspartate Amino Transferase 39 U/L (14-36); Bilirubin,Total 0.6 mg/dl (0.2-1.3); Blood Urea Nitrogen 19 mg/dl (7-17); Carbon Dioxide 29 mmol/L (22.0-30.0); Chloride 104 mmol/L (98-107); Creatinine Clearance Estimated 86 mL/min (50-200); Estimated Glomerular Filt Rate 71 ml/min (>60); GFR (African American) 85 ML/MIN (>60); Globulin 3.4 g/dL (1.3-3.2); Glucose 116 mg/dl (74-100); Potassium 4.1 mmoL/L (3.5-5.1); Sodium 141 mmol/L (136-145); Total Protein,Serum 7.8 g/dl (6.3-8.2)
--- NOTE | 2023-03-03 12:59 | CARE MANAGER ---
Called and spoke with Ms. Patton regarding recent discharge. She stated that she is feeling ok, had no questions or concerns at time of call.
== END 2023-03-01 08:20 | disposition home or self-care (01) ==
LOC: 2ND 10:32
PROVIDERS: Internal Medicine; Admitting Provider Internal Medicine Adolescent Medicine; PCP Family Medicine; Visit Provider Internal Medicine Adolescent Medicine
DX: E78.2 Mixed hyperlipidemia (principal); I07.1 Rheumatic tricuspid insufficiency; I10 Essential (primary) hypertension; I65.23 Occlusion and stenosis of bilateral carotid arteries; R94.39 Abnormal result of other cardiovascular function study; E03.9 Hypothyroidism, unspecified; E11.65 Type 2 diabetes mellitus with hyperglycemia; E66.9 Obesity, unspecified; I25.10 Atherosclerotic heart disease of native coronary artery without angina pectoris; Z79.84 Long term (current) use of oral hypoglycemic drugs; Z79.899 Other long term (current) drug therapy
CPT/HCPCS: G0378; 80048; 80053; 82962; 83036; 84443; 85025; 87636; 93458; 99152; C1725; C1769; J1644; Q9967

== ENCOUNTER → 2023-06-23 07:46 | Outpatient (CLI) | payer MEDICARE, OTHER, SELFPAY ==
--- NOTE | 2023-06-23 07:51 | US_ITS ---
FINAL REPORT CLINICAL HISTORY: Decreased sensation FINDINGS: ANKLE-BRACHIAL PRESSURE INDICES Pressure indices are as follows: RIGHT LOWER EXTREMITY: Ankle-brachial pressure index: 1.0 Comments: Normal LEFT LOWER EXTREMITY: Ankle-brachial pressure index: 1.2 Comments: Normal IMPRESSION: No evidence of significant obstructive peripheral vascular disease of the lower extremities Reviewed, Interpreted and Dictated by Jose Lawrence III, MD Transcribed by Aurora Vasquez Authenticated and [facility]
--- NOTE | 2023-06-23 08:16 | XR_ITS ---
FINAL REPORT CLINICAL HISTORY: Left foot pain COMPARISON: None FINDINGS: LEFT FOOT: Three views of the left foot were obtained. There is no acute fracture or dislocation. There is mild hallux valgus deformity. There is mild degenerative change. Pes planus is noted. There is a posterior calcaneal spur. There is no soft tissue abnormality. IMPRESSION: Degenerative changes without acute bony abnormality. Reviewed, Interpreted and Dictated by Jose Lawrence III, MD Transcribed by Diana Stevens Authenticated and [facility]
--- NOTE | 2023-06-23 08:16 | XR_ITS ---
FINAL REPORT CLINICAL HISTORY: Right foot pain COMPARISON: 04/04/2022 FINDINGS: RIGHT FOOT: Three views of the right foot were obtained. There is no acute fracture or dislocation. There is mild degenerative change. Calcaneal spurs are noted. There is pes planus. There is no soft tissue abnormality. IMPRESSION: Degenerative changes without acute bony abnormality. Stable from prior. Reviewed, Interpreted and Dictated by Jose Lawrence III, MD Transcribed by Diana Stevens Authenticated and . [facility]
== END ==
PROVIDERS: PCP Family Medicine; Visit Provider Podiatrist
DX: E11.65 Type 2 diabetes mellitus with hyperglycemia (principal); M79.672 Pain in left foot; M79.671 Pain in right foot
CPT/HCPCS: 73630; 93923

== ENCOUNTER 2023-10-06 21:29 | Outpatient (CLI) | payer MEDICARE, OTHER, SELFPAY ==
[2023-10-06 16:55] LABS: Basophils % 0.4 % (0.1-2.0); Eosinophils # 0.4 K/mm3 (0.0-0.4); Eosinophils % 4.5 % (0.1-12.0); Hematocrit 40.4 % (37.0-47.0); Hemoglobin 13.3 g/dL (12.2-16.2); Lymphocytes # 1.9 K/mm3 (0.7-4.5); Lymphocytes % 22.9 % (10-50); Mean Platelet Volume 9.5 fl (7.4-10.4); Monocytes # 0.4 K/mm3 (0.1-1.0); Monocytes % 5.1 % (1.7-9.3); Neutrophils # 5.6 K/mm3 (1.8-7.8); Neutrophils % 67.1 % (37.0-80.0); Platelet Count 327 K/mm3 (142-424); Red Blood Count 4.16 M/mm3 (4.20-5.40); Red Cell Distribution Width 13.8 % (11.5-17.5); White Blood Count 8.3 K/mm3 (4.8-10.8)
[2023-10-06 17:01] LABS: Alanine Aminotransferase 21 U/L (12-78); Albumin Level 3.9 g/dl (3.5-5.0); Albumin/Globulin Ratio 1.5 (1.1-1.8); Alkaline Phosphatase 105 U/L (38-126); Anion Gap 10.2 mEq/L (5-15); Aspartate Amino Transferase 25 U/L (14-36); Bilirubin,Total 0.5 mg/dl (0.2-1.3); Blood Urea Nitrogen 23 mg/dl (7-17); Calcium 9.3 mg/dl (8.4-10.2); Carbon Dioxide 28 mmol/L (22.0-30.0); Chloride 106 mmol/L (98-107); Chol/HDL Ratio 3.8 (1-3.5); Cholesterol 165 mg/dl (140-200); Estimated Glomerular Filt Rate 61 ml/min (>60); GFR (African American) 74 ML/MIN (>60); Globulin 2.6 g/dL (1.3-3.2); Glucose 99 mg/dl (74-100); HDL Cholesterol 43 mg/dl (40-60); Potassium 4.2 mmoL/L (3.5-5.1); Sodium 140 mmol/L (136-145); Total Protein,Serum 6.5 g/dl (6.3-8.2); Triglycerides 114 mg/dl (30-150); VLDL Cholesterol 23 mg/dL (0-40)
[2023-10-06 17:13] LABS: Direct LDL Cholesterol 76.82 mg/dL (100-129)
[2023-10-06 17:32] LABS: Thyroid Stimulating Hormone 0.96 uIU/mL (0.465-4.68)
[2023-10-06 18:55] LABS: Creatinine,Urine Random 108 mg/dL (Not Estab.)
[2023-10-06 19:33] LABS: Microalbumin/Creatinine Ratio 250.8
[2023-10-06 20:31] LABS: Hemoglobin A1C 6.3 % (4.0-6.0)
== END 2023-10-06 23:59 ==
LOC: LAB.DROPOF 21:30
PROVIDERS: PCP Family Medicine; Visit Provider Family Medicine
DX: E11.65 Type 2 diabetes mellitus with hyperglycemia (principal); I10 Essential (primary) hypertension; E03.9 Hypothyroidism, unspecified; Z79.84 Long term (current) use of oral hypoglycemic drugs
CPT/HCPCS: 80053; 80061; 82043; 82570; 83036; 84443; 85025

== ENCOUNTER 2024-06-14 09:35 | Outpatient (CLI) | payer MEDICARE, OTHER, SELFPAY ==
--- NOTE | 2024-06-14 09:40 | XR_ITS ---
PROCEDURE INFORMATION: Exam: XR Left Ankle Exam date and time: 06/14/2024 9:49 AM Age: 73 years old Clinical indication: Pain; Ankle; Left; Additional info: Ankle pain TECHNIQUE: Imaging protocol: Radiologic exam of the left ankle. Views: 3 or more views. COMPARISON: CR XR ANKLE WT BEARING LT MIN 3V 06/14/2024 9:49 AM FINDINGS: Bones/joints: No evidence of fracture or dislocation Soft tissues: Soft tissue swelling. IMPRESSION: Soft tissue swelling. Negative for fracture
--- NOTE | 2024-06-14 09:40 | XR_ITS ---
PROCEDURE INFORMATION: Exam: XR Left Foot Complete; Alignment Exam date and time: 06/14/2024 9:49 AM Age: 73 years old Clinical indication: Pain; Foot; Left; Additional info: Foot pain TECHNIQUE: Imaging protocol: Radiologic exam of the left foot. Views: 3 or more views. COMPARISON: CR XR FOOT WT BEARING LT 3V 06/14/2024 9:49 AM FINDINGS: Bones/joints: Normal. No acute fracture. Joint spaces are preserved. No dislocation or subluxation. Soft tissues: Dorsal soft tissue swelling. IMPRESSION: Dorsal soft tissue swelling. No evidence of fracture
== END 2024-06-14 23:59 | disposition home or self-care (01) ==
LOC: RAD 09:37
PROVIDERS: PCP Family Medicine; Visit Provider Podiatrist
DX: M79.672 Pain in left foot (principal); M25.572 Pain in left ankle and joints of left foot
CPT/HCPCS: 73610; 73630

== ENCOUNTER 2024-08-23 07:00 | Outpatient (RCR) | payer MEDICARE, OTHER, SELFPAY | END 2024-08-23 23:59 | disposition home or self-care (01) | LOC: PT 07:00 | PROVIDERS: PCP Family Medicine; Visit Provider Orthopaedic Surgery Adult Reconstructive Orthopaedic Surgery | DX: M51.369 Other intervertebral disc degeneration, lumbar region without mention of lumbar back pain or lower extremity pain (principal); M54.10 Radiculopathy, site unspecified | CPT/HCPCS: 97110; 97140; 97163 ==

== ENCOUNTER 2024-09-23 14:01 | Outpatient (RCR) | payer MEDICARE, OTHER, SELFPAY | END 2024-09-23 23:59 | disposition home or self-care (01) | LOC: PT 14:01 | PROVIDERS: PCP Family Medicine; Visit Provider Orthopaedic Surgery Adult Reconstructive Orthopaedic Surgery | DX: M51.16 Intervertebral disc disorders with radiculopathy, lumbar region (principal) | CPT/HCPCS: 97110; 97140 ==

== ENCOUNTER 2024-09-30 14:31 | Outpatient (RCR) | payer MEDICARE, OTHER, SELFPAY | END 2024-10-05 14:15 | disposition home or self-care (01) | LOC: PT 14:31 | PROVIDERS: PCP Family Medicine; Visit Provider Orthopaedic Surgery Adult Reconstructive Orthopaedic Surgery | DX: M51.16 Intervertebral disc disorders with radiculopathy, lumbar region (principal) | CPT/HCPCS: 97110; 97140 ==

== ENCOUNTER 2025-05-23 10:00 | Outpatient (CLI) | payer MEDICARE, OTHER, SELFPAY ==
--- OUTSIDE RECORDS SUMMARY | 2025-04-11 10:30 | XMS_ITS | Encounter Summary ---
Author Organization Healthcare Address [address] [place] [address] Care Team Providers Care Material Worker Name Role Phone Red Browning MD Primary Care Provider Martha vailable Reason for Visit * Reason Comments Follow-up Encounter Details Date Type Department Care Team (Late st Contact Info) Description 04/11/2025 10:30 AM EDT [facility] Visit [facility] [address] [place] [address] Binh Velasquez MD [address] [place] [address] GCA (giant cell arteritis) (Primary Dx); High risk medication use; OMERO positive; Elevated MCV; Other giant cell arteritis (CMS/HCC) Social History Tobacco Use Types Packs/Day Years Used Date Smoking Tobacco: Never Passive Smoke Exposure: Current Smokeless Tobacco: Never Alcohol Use Standard Drinks/Week Comments Not Currently 0 (1 standard drink = 0.6 oz pur e alcohol) PHQ-2 Answer Date Recorded Patient Health Questionnaire-2 Score 0 01/10/2025 PHQ-9 Answer Date Recorded Patient Health Questionnaire-9 Score 0 01/10/2025 AUDIT-C Answer Date Recorded Frequency of Alcohol Consumption Not on file 04/11/2025 Q2: How many drinks containi ng alcohol do you have on a typical day when you are drinking? Patient does not drink Frequency of Binge Drinking Not on file 03/25 Comments Unknown Sex and Gender Information Value Date Recorded Sex Assigned at Not on file Legal Sex Female 6:52 PM EDT Gender Identity Not on file Sexual Orientation Not on file documented as of this encounter Last Filed Vital Signs Vital Sign Reading Time Taken Comments Blood Pressure 135/83 04/11/2025 10:35 AM EDT Pulse 58 04/11/2025 10:35 AM EDT Temperature 36.4 C (97.5 F) 04/11/2025 10:35 AM EDT Respiratory Rate 16 04/11/2025 10:3 5 AM EDT Oxygen Saturation 97% 04/11/2025 10: 35 AM EDT Inhaled Oxygen Concentration - - Weight 97.5 kg (214 lb 15.2 oz) 025 10:35 AM EDT Height 165.1 cm (5' 5 ) 04/11/2025 10:3 5 AM EDT Body Mass Index 35.77 04/11/2025 10:35 AM EDT documented in this encounter Functional Status documented as of this encounter Miscellaneous Notes * Progress Notes - Binh Velasquez MD - 04/11/2025 10:30 AM EDT Images from the original note were not included. Rheumatology Office Visit - Follow up visit Date: 04/11/2025 Name: Ban Patton Subjective Ban Patton is a 74 y.o. female is here for routine follow-up for f/u of GCA. Patient is doing well on Actemra, will continue Actemra. No new symptoms concerning for GCA. Continues to struggle with right hip pain due to osteoarthritis. Not ready to have replacement surgically. Past history Patient was diagnosed with GCA in February 2024 based on the improvement symptoms with steroids. History as per initial consult in February [address] Levy 73 YO F w/Pmx significant for DM 2, HLD, HTN, right carotid bruit, tricuspid regurg, hypothyroidism, presents to Rheumatology Clinic for possible GCA workup. Patient states the right around she started getting headaches and coughing a lot and swelling of the temporal arteries. She is feeling extremely fatigued and initially thought it was very bad sinus headache. She states it was only 7 days before she went to her primary care. She was treated with a steroids and a course of antibiotics. The antibiotics did nothing for her and the headaches persisted. She was started on 60 mg ofprednisone and then tapered down in 2 weeks steps to where she is today at 10 mg of steroids. However she states the once steroids were started her headaches in the temporal artery swelling lessened and resolve. She also notes that as a steroid restarted the fatigue started to improve as well. She has been on 10 mg of prednisone for the last 10 days and only has 4 days of prednisone. She has not gotten the temporal artery biopsy or a temporal artery ultrasound. She denies any jaw claudication, vision changes or Amaurosis fugax. She does note that back in early January she had trouble opening butnot necessarily jaw claudication. Patient has no family history of autoimmune, psoriasis or IBD. She denies any other joint pain, rashes, dry eyes or dry mouth, any loss pregnancies, clotting diathesis, pericardial or pleural disease, alopecia, oral ulcers, or kevin arthritis/synovitis. Objective Medications: Medications Ordered Prior to Encounter[1] Physical Exam: Physical Exam 03/01/2024 11:24 AM 03/22/2024 9:48 AM 05/24/2024 10:26 AM 08/16/2024 10:40 AM 10/18/2024 11:08 AM 01/10/2025 10:50 AM 04/11/2025 10:35 AM Vitals Systolic 108 141 110 150 96 113 135 Diastolic 69 83 65 84 63 66 83 Heart Rate 77 75 65 65 82 51 58 Temp 36.3 C 36.8 C 36.9 C 36.9 C 37.0 C 36.4 C Resp 16 16 16 16 16 Height (cm) 165.1 cm 165.1 cm 165.1 cm 165.1 cm 165.1 cm 165.1 cm 165.1 cm Weight (kg) 104 kg 103 kg 101.3 kg 104.6 kg 98.6 kg 99.338 kg 97.5 kg BMI 38.15 kg/m2 37.79 kg/m2 37.16 kg/m2 38.37 kg/m2 36.17 kg/m2 36.44 kg/m2 35.77 kg/m2 BSA (m2) 2.18 m2 2.17 m2 2.15 m2 2.19 m2 2.13 m2 2.13 m2 2.11 m2 Visit Report Report Report Report Report Report Report Physical Exam HENT: Head: Normocephalic and atraumatic. Nose: Nose normal. Mouth/Throat: Pharynx: Oropharynx is clear. Eyes: General: Right eye: No discharge. Left eye: No discharge. Cardiovascular: Rate and Rhythm: Normal rate. Heart sounds: No friction rub. Pulmonary: Effort: Pulmonary effort is normal. Breath sounds: Normal breath sounds. Abdominal: Palpations: Abdomen is soft. Tenderness: There is no abdominal tenderness. Musculoskeletal: General: No tenderness. Right shoulder: Normal. Left shoulder: Normal. Right upper arm: Normal. Left upper arm: Normal. Right elbow: Normal. Left elbow: Normal. Right forearm: Normal. Left forearm: Normal. Right hand: Normal. Left hand: Normal. Skin: General: Skin is warm and dry. Neurological: Mental Status: She is alert and oriented to person, place, and time. Psychiatric: Mood and Affect: Mood normal. Behavior: Behavior normal. MSK: Head: 45 ext, 45R/50L Shoulder: no TTP, no erythema or edema, negative empty can test bilateral, ext rot 70R/80L, int rotR T12/L T10 Back: Tenderness along the paraspinals the L-spine region Hips: +L DARLINE, L +Straight leg raise Lab Results: Appointment on 01/10/2025 Component Date Value Vitamin B12, Serum 01/10/2025 475 Folate, Serum 01/10/2025 >20.0 CRP, Plasma 01/10/2025 <3.0 Sedimentation Rate 01/10/2025 6 Conjugated Bilirubin, Pl* 01/10/2025 0.2 Alkaline Phosphatase, Pl* 01/10/2025 85 Total Bilirubin, Plasma 01/10/2025 0.6 Albumin, Plasma 01/10/2025 4.3 Total Protein 01/10/2025 6.6 ALT, Plasma 01/10/2025 20 AST, Plasma 01/10/2025 21 Glucose, Plasma 01/10/2025 86 BUN, Plasma 01/10/2025 23 Creatinine, Plasma 01/10/2025 0.81 BUN/Creatinine Ratio 01/10/2025 28 Sodium, Plasma 01/10/2025 143 Potassium, Plasma 01/10/2025 3.6 Chloride, Plasma 01/10/2025 103 CO2, Plasma 01/10/2025 27 Anion Gap 01/10/2025 13 Total Calcium, Plasma 01/10/2025 9.6 eGFRcr 01/10/2025 76.3 WBC Count 01/10/2025 7.45 RBC Count 01/10/2025 4.15 HGB 01/10/2025 13.7 HCT 01/10/2025 40.8 Platelet Count 01/10/2025 230 MCV 01/10/2025 98 MCH 01/10/2025 33.0 (H) MCHC 01/10/2025 33.6 RDW 01/10/2025 12.4 MPV 01/10/2025 10.9 nRBC 01/10/2025 0.0 Differential Type 01/10/2025 Automated Neutrophils % 01/10/2025 63 Lymphocytes % 01/10/2025 22 Monocytes % 01/10/2025 9 Eosinophils % 01/10/2025 5 Basophils % 01/10/2025 1 Immature Granulocytes % 01/10/2025 0 Neutrophils Absolute 01/10/2025 4.64 Lymphocytes Absolute 01/10/2025 1.65 Monocytes Absolute 01/10/2025 0.70 Eosinophils Absolute 01/10/2025 0.39 Basophils Absolute 01/10/2025 0.05 Immature Granulocytes Ab* 01/10/2025 0.02 Currently available Rheumatologic testing values noted below: Lab Results Component Value Date SEDRATE 5 04/11/2025 RF 17 (H) 03/01/2024 OMERO Detected (H) 03/01/2024 ANATITER 1:320 (A) 03/01/2024 CRP <3.0 04/11/2025 CCPIGG <5.0 03/01/2024 Lab Results Component Value Date SCL70 5 03/22/2024 Surveillance labs (03/22/24): QuantiFERON: Neg Hep B Surf Ab: <8.00 Heb B surf Ag: Neg Hep C Ab: Neg ASSESSMENT & PLAN: Assessment Ban is a 74 y.o. female who presents for f/u of GCA. GCA: No signs of any GCA flare and appears to be very well-controlled on current regimen of Actemra. Previous history of diverticulitis. Patient currently does not any abdominal pain. Again reminded about the possible perforation risk of the gut with the use of Actemra. Patient verbalized understanding. It was also discussed with the patient to stop taking Actemra in case of any infection and seek medical attention. Patient verbalized understanding High MCV: Folate and B12 level normal. OA/DDD: Especially affecting right hip. Patient is not ready for hip replacement. Diagnosis Plan 1. GCA (giant cell arteritis) 2. High risk medication use CBC and differential Comprehensive metabolic panel Sedimentation Rate, Automated C-reactive protein 3. OMERO positive 4. Elevated MCV 5. Other giant cell arteritis (CMS/HCC) Orders Placed This Encounter Procedures CBC and differential Comprehensive metabolic panel Sedimentation Rate, Automated C-reactive protein Next scheduled follow up: Follow up in about 3 months (around 07/12/2025). Note to patient: The Century Cures Act makes medical notes like these available to patients inthe interest of transparency. However, be advised this is a medical document. It is intended as peer to peer communication. It is written in medical language and may contain abbreviations or verbiagethat are unfamiliar. It may appear blunt or direct. Medical documents are intended to carry relevant information, facts as evident, and the clinical opinion of the medical professional. Parts of this note were dictated using [employer] voice recognition software. As a result, errors may occur. When identified, these packing inspector errors are corrected, but while every attempt is made to prevent/correct these, errors may still exist. The patient was counseled about diagnostic results, instruction for management, risk factors reduction, prognosis, compliance with visits and treatment, risks and benefits of treatments options. Prior notes (by external physicians) and results were reviewed by me with independent interpretation of labs and imaging. My note will be sent to PCP and other consulting physicians. Binh Velasquez MD Radiotelegraph Operator Division of Rheumatology Department of Internal Medicine [facility] [1] Current Outpatient Medications on File Prior to Visit Medication Sig Dispense Refill allopurinol (Zyloprim) 100 MG tablet Take 1 tablet (100 mg) by mouth 2 (two) times a day. Aspirin Buf,EgDlri-PqCnsg-OjR, 81 MG tablet Take 1 tablet by mouth 1 (one) time each day. chlorthalidone (Hygroton) 25 MG tablet Take 1 tablet (25 mg) by mouth daily. cyanocobalamin (Vitamin B 12) 500 MCG tablet Take 1 tablet by mouth daily. folic acid (Folvite) 1 MG tablet Take by mouth daily. hydroCHLOROthiazide (Microzide) 12.5 MG capsule Take 1 capsule (12.5 mg) by mouth 1 (one) time eachday. 30 capsule 1 losartan (Cozaar) 100 MG tablet magnesium oxide (Mag-Ox) 400 (240 Mg) MG tablet Take 1 tablet (400 mg) by mouth daily. metFORMIN XR (Glucophage-XR) 750 MG 24 hr tablet Take 1 tablet (750 mg) by mouth 2 (two) times a day. metoprolol succinate XL (Toprol-XL) 50 MG 24 hr tablet Multiple Vitamins-Minerals (ONE-A-DAY WOMENS PO) Take by mouth 1 (one) time each day. pravastatin (Pravachol) 20 MG tablet Take 1 tablet (20 mg) by mouth daily. Synthroid 75 MCG tablet Take 1 tablet (75 mcg) by mouth daily. [DISCONTINUED] Tocilizumab (Actemra ACTPen) 162 MG/0.9ML solution auto-injector autoinjector Inject0.9 mL under the skin every 7 days. 3.6 mL 2 biotin 1000 MCG tablet Take 1 tablet (1,000 mcg) by mouth 1 (one) time per week. colchicine (Colcrys) 0.6 MG tablet 1 tab(s) orally once (Patient not taking: Reported on 01/10/2025) diclofenac (Voltaren) 50 MG EC tablet (Patient not taking: Reported on 01/10/2025) linaCLOtide (Linzess) 290 MCG capsule Take 1 capsule (290 mcg) by mouth 1 (one) time each day before breakfast. (Patient not taking: Reported on 01/10/2025) meloxicam (Mobic) 15 MG tablet (Patient not taking: Reported on 01/10/2025) predniSONE (Deltasone) 5 MG tablet Take 1 tablet (5 mg) by mouth 1 (one) time each day. Take 3 tabs(15mg) daily for 14 days, then take 2 tabs (10mg) daily for 14 days, then take 1 tab (5mg) daily for 14 days, then stop 84 tablet 0 sulfamethoxazole-trimethoprim (Bactrim DS) 800-160 MG tablet Take 1 tablet by mouth 1 (one) time each day. (Patient not taking: Reported on 01/10/2025) 30 tablet 1 UNABLE TO FIND Take 50 each by mouth 1 (one) time each day. Med Name: Elderberry 50mg (Patient not taking: Reported on 10/18/2024) No current facility-administered medications on file prior to visit. documented in this encounter Plan of Treatment Upcoming Encounters Date Type Department Care Team (Late st Contact Info) Description 07/18/2025 10:30 AM EST [facility] Visit [facility] [address] [place] [address] Binh Velasquez MD [address] [place] [address] documented as of this encounter Results * C-reactive protein (04/11/2025 11:26 AM EDT) CRP, Plasma <3.0 <=8.0 mg/L 04/11/2025 1:15 PM EDT [facility] Blood Venous blood specimen / Unknown Venipuncture / Unknown 04/11/2025 11:26 AM EDT 04/11/2025 11:26 AM EDT Narrative [facility] - 04/11/2025 1:15 PM EDT This CRP test is appropriate for assessment of infection, systemic inflammation and/or tissue injury. To assess cardiovascular disease risk order high sensitivity CRP (CRPH). Binh Velasquez MD LAB BLOOD ORDERABLES Final Re sult [facility] [address] [place] [address] * Sedimentation Rate, Automated (04/11/2025 11:26 AM EDT) Sedimentation Rate 5 <30 mm/hr 2024 1:24 PM EDT [facility] Blood Venous blood specimen / Unknown Venipuncture / Unknown 04/11/2025 11:26 AM EDT 04/11/2025 11:26 AM EDT us Binh Velasquez MD LAB BLOOD ORDERABLES Final Re sult [facility] [address] [place] [address] * (ABNORMAL) Comprehensive metabolic panel (04/11/2025 11:26 AM EDT) Glucose, Plasma 91 74 - 99 mg/dL 04/11/2025 1:15 PM EDT [facility] BUN, Plasma 22 8 - 23 mg/dL 04/11/2025 1:15 PM EDT [facility] Creatinine, Plasma 0.91 0.60 - 1.10 mg/dL 04/11/2025 1:15 PM EDT [facility] BUN/Creatinine Ratio 24 04/11/2025 1:15 PM EDT [facility] Sodium, Plasma 141 136 - 145 mmol/L 04/11/2025 1:15 PM EDT [facility] Potassium, Plasma 4.2 3.6 - 4.9 mmol/L 04/11/2025 1:15 PM EDT [facility] Chloride, Plasma 105 97 - 107 mmol/L 04/11/2025 1:15 PM EDT [facility] CO2, Plasma 25 22 - 29 mmol/L 04/11/2025 1:15 PM EDT [facility] Anion Gap 11 6 - 16 mmol/L 04/11/2025 1:15 PM EDT [facility] Total Calcium, Plasma 9.5 8.9 - 10.2 mg/dL 04/11/2025 1:15 PM EDT [facility] Total Protein 6.2(L) 6.3 - 7.9 g/dL 04/11/2025 1:15 PM EDT [facility] Albumin, Plasma 4.2 3.5 - 5.2 g/dL 04/11/2025 1:15 PM EDT [facility] AST, Plasma 30 10 - 35 U/L 04/11/2025 1:15 PM EDT [facility] ALT, Plasma 25 10 - 35 U/L 04/11/2025 1:15 PM EDT [facility] Alkaline Phosphatase, Plasma 97 46 - 142 U/L 04/11/2025 1:15 PM EDT [facility] Total Bilirubin, Plasma 0.7 0.2 - 1.1 mg/dL 04/11/2025 1:15 PM EDT [facility] eGFRcr 66.3 mL/min/1.7 3m*2 04/11/2025 1:15 PM EDT [facility] Comment:Reported eGFRcr in m L/min/1.73m2 is based the CKD-EPI 2020 equation that does not use a race coefficient. Blood Venous blood specimen / Unknown Venipuncture / Unknown 04/11/2025 11:26 AM EDT 04/11/2025 11:26 AM EDT us Binh Velasquez MD LAB BLOOD ORDERABLES Final Re sult [facility] [address] [place] [address] * (ABNORMAL) CBC and differential (04/11/2025 11:26 AM EDT) WBC Count 6.48 3.70 - 10.30 10*3/uL LAB HEMATOLOGY METHOD 04/11/2025 1:10 PM EDT [facility] RBC Count 4.12 3.90 - 5.20 10*6/uL LAB HEMATOLOGY METHOD 04/11/2025 1:10 PM EDT [facility] HGB 13.2 11.2 - 15.7 g/dL LAB HEMATOLOGY METHOD 04/11/2025 1:10 PM EDT [facility] HCT 41.9 34.0 - 45.0 % LAB HEMATOLOGY METHOD 04/11/2025 1:10 PM EDT [facility] Platelet Count 198 155 - 369 10*3/uL LAB HEMATOLOGY METHOD 04/11/2025 1:10 PM EDT [facility] MCV 102(H) 79 - 98 fL LAB HEMATOLOGY METHOD 04/11/2025 1:10 PM EDT [facility] MCH 32.0 26.0 - 32.0 pg LAB HEMATOLOGY METHOD 04/11/2025 1:10 PM EDT [facility] MCHC 31.5 30.7 - 35.5 g/dL LAB HEMATOLOGY METHOD 04/11/2025 1:10 PM EDT [facility] RDW 12.6 11.5 - 14.5 % LAB HEMATOLOGY METHOD 04/11/2025 1:10 PM EDT [facility] MPV 10.9 8.8 - 12.5 fL LAB HEMATOLOGY METHOD 04/11/2025 1:10 PM EDT [facility] nRBC 0.0 <=0.0 per 100 WBCs LAB HEMATOLOGY METHOD 04/11/2025 1:10 PM EDT [facility] Differential Type Automated LAB HEMATOLOGY METHOD 04/11/2025 1:10 PM EDT [facility] Neutrophils % 56 % LAB HEMATOLOGY METHOD 04/11/2025 1:10 PM EDT [facility] Lymphocytes % 24 % LAB HEMATOLOGY METHOD 04/11/2025 1:10 PM EDT [facility] Monocytes % 13 % LAB HEMATOLOGY METHOD 04/11/2025 1:10 PM EDT [facility] Eosinophils % 5 % LAB HEMATOLOGY METHOD 04/11/2025 1:10 PM EDT [facility] Basophils % 1 % LAB HEMATOLOGY METHOD 04/11/2025 1:10 PM EDT [facility] Immature Granulocytes % 1 % LAB HEMATOLOGY METHOD 04/11/2025 1:10 PM EDT [facility] Neutrophils Absolute 3.67 1.60 - 6.10 10*3/uL LAB HEMATOLOGY METHOD 04/11/2025 1:10 PM EDT [facility] Lymphocytes Absolute 1.52 1.20 - 3.90 10*3/uL LAB HEMATOLOGY METHOD 04/11/2025 1:10 PM EDT [facility] Monocytes Absolute 0.87 0.30 - 0.90 10*3/uL LAB HEMATOLOGY METHOD 04/11/2025 1:10 PM EDT [facility] Eosinophils Absolute 0.35 0.00 - 0.50 10*3/uL LAB HEMATOLOGY METHOD 04/11/2025 1:10 PM EDT [facility] Basophils Absolute 0.04 0.00 - 0.10 10*3/uL LAB HEMATOLOGY METHOD 04/11/2025 1:10 PM EDT [facility] Immature Granulocytes Absolute 0.03 0.00 - 0.06 10*3/uL LAB HEMATOLOGY METHOD 04/11/2025 1:10 PM EDT [facility] Blood Venous blood specimen / Unknown Venipuncture / Unknown 04/11/2025 11:26 AM EDT 04/11/2025 11:26 AM EDT Narrative [facility] - 04/11/2025 1:10 PM EDT Therapeutic decision making should be based on absolute values, rather than percentages. us Binh Velasquez MD LAB BLOOD ORDERABLES Final Re sult [facility] [address] [place] [address] documented in this encounter Visit Diagnoses Diagnosis GCA (giant cell arteritis)- Primary Giant cell arteritis High risk medication use OMERO positive Elevated MCV Other abnormality of red blood cells Other giant cell arteritis (CMS/HCC) documented in this encounter Additional Health Concerns Assessment Noted Time PHQ-9 Depression Total Score: 0 01/11/20 25 10:53 AM EDT A fall risk assessment has been complete d for the patient 04/11/2025 10:43 AM EDT A Body Mass Index follow-up plan has been documented for the patient 04/11/2025 11:07 AM EDT documented as of this encounter Care Teams Material Worker Relationship Specialty Start Date End Date Red Browning MD PCP - General Family Medicine 05/24/24 documented as of this encounter
--- OUTSIDE RECORDS SUMMARY | 2025-05-23 10:04 | XMS_ITS | Encounter Summary ---
Author Organization Healthcare Address [address] [place] [address] Care Team Providers Care Storage Consultant Name Role Phone Red Browning MD Primary Care Provider Martha vailable Encounter Details Date Type Department Care Team (Late st Contact Info) Description 04/11/2025 Refill [facility] [address] [place] [address] Seda Barton, PharmD GCA (giant cell arteritis) Social History Tobacco Use Types Packs/Day Years [...] on file documented as of this encounter Functional Status documented as of this encounter Miscellaneous Notes * Progress Notes - Seda Barton, PharmD - 04/11/2025 12:21 PM EDT 1 medication(s) has been approved per protocol. documented in this encounter Plan of Treatment Upcoming Encounters Date Type Department Care Team (Late st Contact Info) Description 07/18/2025 10:30 AM EST Office Visit [facility] [address] [place] [address] Binh Velasquez MD [address] [place] [address] documented as of this encounter Visit Diagnoses Diagnosis GCA (giant cell arteritis) Giant cell arteritis documented in this encounter Additional Health Concerns Assessment Noted Time PHQ-9 Depression Total Score: 0 01/11/20 25 10:53 AM EDT A fall risk assessment has been complete d for the patient 04/11/2025 10:43 AM EDT A Body Mass Index follow-up plan has been documented for the patient 04/11/2025 11:07 AM EDT documented as of this encounter Care Teams Storage Consultant Relationship Specialty Start Date End Date Red Browning MD PCP - General Family Medicine 05/24/24 documented as of this encounter
--- OUTSIDE RECORDS SUMMARY | 2025-05-23 10:04 | XMS_ITS | Encounter Summary ---
Author Organization Healthcare Address [address] [place] [address] Care Team Providers Care Harness Worker Name Role Phone Red Browning MD Primary Care Provider Martha vailable Encounter Details Date Type Department Care Team (Latest Contact Info) Description 04/11/2025 Travel Social History Tobacco Use Types Packs/Day Years [...] Functional Status documented as of this encounter Plan of Treatment Upcoming Encounters Date Type Department Care Team (Late st Contact Info) Description 07/18/2025 10:30 AM EST Office Visit [facility] [address] [place] [address] Binh Velasquez MD [address] [place] [address] documented as of this encounter Visit Diagnoses Not on filedocumented in this encounter Additional Health Concerns Assessment Noted Time PHQ-9 Depression Total Score: 0 01/11/20 25 10:53 AM EDT A fall risk assessment has been complete d for the patient 04/11/2025 10:43 AM EDT A Body Mass Index follow-up plan has been documented for the patient 04/11/2025 11:07 AM EDT documented as of this encounter Care Teams Harness Worker Relationship Specialty Start Date End Date Red Browning MD PCP - General Family Medicine 05/24/24 documented as of this encounter
--- OUTSIDE RECORDS SUMMARY | 2025-05-23 10:04 | XMS_ITS | Clinical Summary ---
Author Organization [facility] Address [address] 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 Active Aspirin Buf,CaCarb-MgCa rb-MgO, 81 MG tablet Take 1 tablet by mouth 1 (one) time each day. 5 Active chlorthalidone (Hygroton) 25 MG tablet Take 1 tablet (25 mg) by mouth daily. 5 Active colchicine (Colcrys) 0.6 MG tablet 1 tab(s) orally once Active Synthroid 75 MCG tablet Take 1 tablet (75 mcg) by mouth daily. 5 Active losartan (Cozaar) 100 MG tablet 4 Active metFORMIN XR (Glucophage-XR) 750 MG 24 hr tablet Take 1 tablet (750 mg) by mouth 2 (two) times a day. 4 Active pravastatin (Pravachol) 20 MG tablet Take 1 tablet (20 mg) by mouth daily. 5 Active linaCLOtide (Linzess) 290 MCG capsule Take 1 capsule (290 mcg) by mouth 1 (one) time each day before breakfast. Active biotin 1000 MCG tablet Take 1 tablet (1,000 mcg) by mouth 1 (one) time per week. Active Multiple Vitamins-Minera ls (ONE-A-DAY WOMENS PO) Take by mouth 1 (one) time each day. Active magnesium oxide (Mag-Ox) 400 (240 Mg) MG tablet Take 1 tablet (400 mg) by mouth daily. Active metoprolol succinate XL (Toprol-XL) 50 MG 24 hr tablet 4 Active UNABLE TO FIND Take 50 each by mouth 1 (one) time each day. Med Name: Elderberry 50mg Active sulfamethoxazol e-trimethoprim (Bactrim DS) 800-160 MG tablet Take 1 tablet by mouth 1 (one) time each day. 30 tablet 1 4 Active Additional Information Patient not taking.Reported on 01/10/2025 diclofenac (Voltaren) 50 MG EC tablet 4 Active meloxicam (Mobic) 15 MG tablet 4 Active predniSONE (Deltasone) 5 MG tablet Take 1 tablet (5 mg) by mouth 1 (one) time each day. Take 3 tabs (15mg) daily for 14 days, then take 2 tabs (10mg) daily for 14 days, then take 1 tab (5mg) daily for 14 days, then stop 84 tablet 4 Active hydroCHLOROthia zide (Microzide) 12.5 MG capsule Take 1 capsule (12.5 mg) by mouth 1 (one) time each day. 30 capsule 1 4 Active cyanocobalamin (Vitamin B 12) 500 MCG tablet Take 1 tablet by mouth daily. Active folic acid (Folvite) 1 MG tablet Take by mouth daily. Active Tocilizumab (Actemra ACTPen) 162 MG/0.9ML solution auto-injector autoinjectorInd ications:GCA (giant cell arteritis) Inject 0.9 mL under the skin every 7 days. 3.6 mL 3 5 Active Active Problems Problem Noted Date Diagnosed Date Obesity (BMI 35.0-39.9 without comorbidity) 02/23 Resolved Problems Problem Noted Date Diagnosed Date Resolved Date Abnormal EKG 05/24/2024 05/24/2024 Cardiac murmur 05/24/2024 05/24/2024 Carotid artery stenosis 05/24/202404/27 Chest pain 05/24/2024 05/24/2024 Decreased sensation of lower extremity 05/24/2024 05/24/2024 Dyspnea 05/24/2024 05/24/2024 Edema 05/24/2024 05/24/2024 Gout 05/24/2024 05/24/2024 Keratosis 05/24/2024 05/24/2024 Nail dystrophy 05/24/2024 05/24/2024 Pain of right lower leg 05/24/202404/27 Palpitations 05/24/2024 05/24/2024 Right carotid bruit 05/24/2024 05/24/20 Sinus tachycardia 05/24/2024 05/24/2024 Tricuspid regurgitation 05/24/202404/27 Type 2 diabetes mellitus wit h hyperglycemia, without long-term current use of insulin 05/24/2024 05/24/2024 Callus of foot 05/24/2024 05/24/2024 Right upper quadrant pain 02/16/2024 Diverticulitis 01/26/2024 05/24/2024 Alternating constipation and diarrhea 01/26/2024 05/24/2024 Lower abdominal pain 01/26/2024 024 Diabetes type 2, controlled 10/17/2014 05/24/2024 HLD (hyperlipidemia) 10/17/2014 024 HTN (hypertension) 10/17/2014 Hypothyroid 10/17/2014 05/24/2024 Microalbuminuria 09/29/2014 05/24/2024 Encounters Date Type Department Care Team Description 04/11/2025 10:30 AM EDT Office Visit [facility] Medicine Specialties [address] [place] [address] Binh Velasquez MD GCA (giant cell arteritis) (Primary Dx); High risk medication use; OMERO positive; Elevated MCV; Other giant cell arteritis (CMS/HCC) 04/11/2025 Refill [facility] Medicine Specialties [address] [place] [address] Seda Barton, PharmD GCA (giant cell arteritis) 04/11/2025 Travel from Last 3 Months Immunizations Immunization Administration Dates Next Due Influenza, High-dose, Split Virus, Trivalent, Injectable, preservative free 06/21/2024 Influenza, high-dose, quadrivalent 06/13/2023, Influenza, injectable, MDCK, preservative free, quadrivalent 06/23/2020 Pneumococcal 20-bandar Conj Vaccine 09/09/2022 Tdap 10/06/2023 Family History Medical History Relation Name Comments Hypertension Father Hypertension Mother Pancreatic cancer Sister 1 Pancreatic cancer Sister 2 Family his tory of pancreatic cancer Relation Name Status Comments Father Mother Sister 1 Sister 2 Social History Tobacco Use Types Packs/Day Years Used Date Smoking Tobacco: Never Passive Smoke Exposure: Current Smokeless Tobacco: Never Tobacco Cessation:Counseling Given: Not Answered Alcohol Use Standard Drinks/Week Comments Not Currently [...] on file Sexual Orientation Not on file Last Filed Vital Signs Vital Sign Reading [...] Mass Index 35.77 04/11/2025 10:35 AM EDT Plan of Treatment Upcoming Encounters Date Type Department Care Team (Late st Contact Info) Description 07/18/2025 10:30 AM EST Office Visit [facility] [address] [place] [address] Binh Velasquez MD [address] [place] [address] Health Maintenance Due Date Last Done Comments [facility]-Bone Density Scan 1950 [facility]-Medicare Annual Wellness (AWV) 1950 [facility]-/Child/Adol SDOH Screenings 1950 [facility]- SDOH Screenings 1968 [facility]-Adult SDOH Screenings 1968 [facility]-Zoster Vaccines (1 of 2) 1969 CT Colonography 1995 Colonoscopy 1995 FIT-DNA 1995 FIT 1995 FOBT 1995 Sigmoidoscopy 1995 [facility]-Colorectal Cancer Screening 1995 [facility]-Breast Cancer Screening 2000 [facility]-RSV Vaccine: 60+ Years or (1 - Risk 60-74 years 1-dose series) 2010 [facility]-Influenza Vaccine (#1) 04/25/202506/21, 06/13/2023, 06/10/2022, Additional history exists [id number]-70 Vaccine (8 - Moderna risk 2023- season) 2025 11/25/2024, 09/26/2023, 06/25/2022, Additional history exists [facility]-Depression Screening 01/10/2026 01/10/2025, 12/23 [facility]-DTaP,Tdap,and Td Vaccines (2 - Td or Tdap) 10/06/2033 10/06/2023 [facility]-Pneumococcal Vaccine: 50+ Years Completed 09/09/2022 [facility]-Hepatitis C Screening Completed 03/22/2024 [facility]-Obesity Intervention Completed 025, 01/10/2025, 10/18/2024, Additional history exists HPV Vaccines Aged Out No longer eligi ble based on patient's age to complete this topic [facility]-HIB Vaccines Aged Out No longer e ligible based on patient's age to complete this topic [facility]-Hepatitis A Vaccines Aged Out No longer eligible based on patient's age to complete this topic [facility]-IPV Vaccines Aged Out No longer e ligible based on patient's age to complete this topic [facility]-Rotavirus Vaccines Aged Out No lo nger eligible based on patient's age to complete this topic Procedures Procedure Name Priority Date/Time Associated Diagnosis Comments CBC WITH AUTO DIFFERENTIAL Routine 04/11/2025 11:26 AM EDT High risk medication use COMPREHENSIVE METABOLIC PANEL, PLASMA Routine 04/11/2025 11:26 AM EDT High risk medication use SEDIMENTATION RATE, AUTOMATED Routine 04/11/2025 11:26 AM EDT High risk medication use C-REACTIVE PROTEIN, PLASMA Routine 04/11/2025 11:26 AM EDT High risk medication use HEPATITIS C ANTIBODY W/REFLEX TO HCV QUANT PCR Routine 03/22/2024 11:26 AM EDT GCA (giant cell arteritis) (CMS/HCC) OMERO positive from Last 3 Months or Most Recently Relevant to Health Maintenance Results * Sedimentation Rate, Automated (04/11/2025 11:26 AM EDT) Sedimentation Rate 5 <30 mm/hr 2024 1:24 PM EDT [facility] Blood Venous blood specimen / Unknown Venipuncture / Unknown 04/11/2025 11:26 AM EDT 04/11/2025 11:26 AM EDT us Binh Velasquez MD LAB BLOOD ORDERABLES Final Re sult [facility] [address] [place] [address] * (ABNORMAL) CBC and differential (04/11/2025 11:26 AM EDT) WBC Count 6.48 3.70 - 10.30 10*3/uL LAB HEMATOLOGY METHOD 04/11/2025 1:10 PM EDT [facility] RBC Count 4.12 3.90 - 5.20 10*6/uL LAB HEMATOLOGY METHOD 04/11/2025 1:10 PM EDT [facility] HGB 13.2 11.2 - 15.7 g/dL LAB HEMATOLOGY METHOD 04/11/2025 1:10 PM EDT [facility] HCT 41.9 34.0 - 45.0 % LAB HEMATOLOGY METHOD 04/11/2025 1:10 PM EDT [facility] Platelet Count 198 155 - 369 10*3/uL LAB HEMATOLOGY METHOD 04/11/2025 1:10 PM EDT [facility] MCV 102(H) 79 - 98 fL LAB HEMATOLOGY METHOD 04/11/2025 1:10 PM EDT [facility] MCH 32.0 26.0 - 32.0 pg LAB HEMATOLOGY METHOD 04/11/2025 1:10 PM EDT [facility] MCHC 31.5 30.7 - 35.5 g/dL LAB HEMATOLOGY METHOD 04/11/2025 1:10 PM EDT [facility] RDW 12.6 11.5 - 14.5 % LAB HEMATOLOGY METHOD 04/11/2025 1:10 PM EDT [facility] MPV 10.9 8.8 - 12.5 fL LAB HEMATOLOGY METHOD 04/11/2025 1:10 PM EDT [facility] nRBC 0.0 <=0.0 per 100 WBCs LAB HEMATOLOGY METHOD 04/11/2025 1:10 PM EDT [facility] Differential Type Automated LAB HEMATOLOGY METHOD 04/11/2025 1:10 PM EDT [facility] Neutrophils % 56 % LAB HEMATOLOGY METHOD 04/11/2025 1:10 PM EDT [facility] Lymphocytes % 24 % LAB HEMATOLOGY METHOD 04/11/2025 1:10 PM EDT [facility] Monocytes % 13 % LAB HEMATOLOGY METHOD 04/11/2025 1:10 PM EDT [facility] Eosinophils % 5 % LAB HEMATOLOGY METHOD 04/11/2025 1:10 PM EDT [facility] Basophils % 1 % LAB HEMATOLOGY METHOD 04/11/2025 1:10 PM EDT [facility] Immature Granulocytes % 1 % LAB HEMATOLOGY METHOD 04/11/2025 1:10 PM EDT [facility] Neutrophils Absolute 3.67 1.60 - 6.10 10*3/uL LAB HEMATOLOGY METHOD 04/11/2025 1:10 PM EDT [facility] Lymphocytes Absolute 1.52 1.20 - 3.90 10*3/uL LAB HEMATOLOGY METHOD 04/11/2025 1:10 PM EDT [facility] Monocytes Absolute 0.87 0.30 - 0.90 10*3/uL LAB HEMATOLOGY METHOD 04/11/2025 1:10 PM EDT [facility] Eosinophils Absolute 0.35 0.00 - 0.50 10*3/uL LAB HEMATOLOGY METHOD 04/11/2025 1:10 PM EDT [facility] Basophils Absolute 0.04 0.00 - 0.10 10*3/uL LAB HEMATOLOGY METHOD 04/11/2025 1:10 PM EDT [facility] Immature Granulocytes Absolute 0.03 0.00 - 0.06 10*3/uL LAB HEMATOLOGY METHOD 04/11/2025 1:10 PM EDT [facility] Blood Venous blood specimen / Unknown Venipuncture / Unknown 04/11/2025 11:26 AM EDT 04/11/2025 11:26 AM EDT Narrative [facility] - 04/11/2025 1:10 PM EDT Therapeutic decision making should be based on absolute values, rather than percentages. us Binh Velasquez MD LAB BLOOD ORDERABLES Final Re sult [facility] [address] [place] [address] * C-reactive protein (04/11/2025 11:26 AM EDT) CRP, Plasma <3.0 <=8.0 mg/L 04/11/2025 1:15 PM EDT [facility] Blood Venous blood specimen / Unknown Venipuncture / Unknown 04/11/2025 11:26 AM EDT 04/11/2025 11:26 AM EDT Narrative [facility] - 04/11/2025 1:15 PM EDT This CRP test is appropriate for assessment of infection, systemic inflammation and/or tissue injury. To assess cardiovascular disease risk order high sensitivity CRP (CRPH). us Binh Velasquez MD LAB BLOOD ORDERABLES Final Re sult [facility] [address] [place] [address] * (ABNORMAL) Comprehensive metabolic panel (04/11/2025 11:26 AM EDT) Glucose, Plasma 91 74 - 99 mg/dL 04/11/2025 1:15 PM EDT [facility] BUN, Plasma 22 8 - 23 mg/dL 04/11/2025 1:15 PM EDT [facility] Creatinine, Plasma 0.91 0.60 - 1.10 mg/dL 04/11/2025 1:15 PM EDT [facility] BUN/Creatinine Ratio 24 04/11/2025 1:15 PM EDT [facility] Sodium, Plasma 141 136 - 145 mmol/L 04/11/2025 1:15 PM EDT [facility] Potassium, Plasma 4.2 3.6 - 4.9 mmol/L 04/11/2025 1:15 PM EDT [facility] Chloride, Plasma 105 97 - 107 mmol/L 04/11/2025 1:15 PM EDT [facility] CO2, Plasma 25 22 - 29 mmol/L 04/11/2025 1:15 PM EDT [facility] Anion Gap 11 6 - 16 mmol/L 04/11/2025 1:15 PM EDT [facility] Total Calcium, Plasma 9.5 8.9 - 10.2 mg/dL 04/11/2025 1:15 PM EDT [facility] Total Protein 6.2(L) 6.3 - 7.9 g/dL 04/11/2025 1:15 PM EDT [facility] Albumin, Plasma 4.2 3.5 - 5.2 g/dL 04/11/2025 1:15 PM EDT [facility] AST, Plasma 30 10 - 35 U/L 04/11/2025 1:15 PM EDT [facility] ALT, Plasma 25 10 - 35 U/L 04/11/2025 1:15 PM EDT [facility] Alkaline Phosphatase, Plasma 97 46 - 142 U/L 04/11/2025 1:15 PM EDT [facility] Total Bilirubin, Plasma 0.7 0.2 - 1.1 mg/dL 04/11/2025 1:15 PM EDT [facility] eGFRcr 66.3 mL/min/1.7 3m*2 04/11/2025 1:15 PM EDT [facility] Comment:Reported eGFRcr in m L/min/1.73m2 is based the CKD-EPI 2020 equation that does not use a race coefficient. Blood Venous blood specimen / Unknown Venipuncture / Unknown 04/11/2025 11:26 AM EDT 04/11/2025 11:26 AM EDT Binh Velasquez MD LAB BLOOD ORDERABLES Final Re sult Performing Organization Address City/[facility]/ZIP Co de Phone Number [facility] [address] [place] [address] * Hepatitis C Antibody (03/22/2024 11:26 AM EDT) [facility] Signature Hepatitis C Antibody Negative Negative 03/22/2024 1:43 PM EDT [facility] Blood Venous blood specimen / Unknown Venipuncture / Unknown 03/22/2024 11:26 AM EDT 03/22/2024 11:29 AM EDT Cory Levy MD LAB BLOOD ORDERABLES Final Result Performing Organization Address City/[facility]/ZIP Co de Phone Number [facility] [address] [place] [address] from Last 3 Months or Most Recently Relevant to Health Maintenance Insurance [employer] Care Teams Milk Pickup Truck Driver Relationship Specialty Start Date End Date Red Browning MD PCP - General Family Medicine 05/24/24
[2025-05-23 10:46] LABS: Hematocrit 44.4 % (37.0-47.0); Hemoglobin 14.3 g/dL (12.2-16.2); Immature Granulocytes % 0.3 %; Mean Corpuscular HGB Conc 32.2 g/dL (31.8-35.4); Mean Corpuscular Hemoglobin 33.3 pg (27.0-31.2); Mean Corpuscular Volume 103.3 fl (81-99); Nucleated Red Blood Cells % 0 %; Platelet Count 143 K/mm3 (142-424); Red Blood Count 4.30 M/mm3 (4.20-5.40); Red Cell Distribution Width-SD 47.8 fL; White Blood Count 5.8 K/mm3 (4.8-10.8)
[2025-05-23 10:54] LABS: Albumin Level 4.6 g/dl (3.5-5.0); Chloride 104 mmol/L (98-107); Potassium 4.3 mmoL/L (3.5-5.1); Sodium 137 mmol/L (136-145)
[2025-05-23 10:56] LABS: Bilirubin,Unconjugated 0.7 mg/dL (0.0-1.1)
[2025-05-23 10:57] LABS: Alanine Aminotransferase 35 U/L (12-78); Alkaline Phosphatase 185 U/L (38-126); Anion Gap 16.3 mEq/L (5-15); Aspartate Amino Transferase 81 U/L (14-36); Bilirubin,Direct 0.8 mg/dl (0.0-0.4); Bilirubin,Indirect 0.8 mg/dL (0.0-0.9); Bilirubin,Total 1.6 mg/dl (0.2-1.3); Calcium 9.3 mg/dl (8.4-10.2); Carbon Dioxide 21 mmol/L (22.0-30.0); Cholesterol 198 mg/dl (140-200); Glucose 86 mg/dl (74-100); HDL Cholesterol 91 mg/dl (40-60); Magnesium 1.6 mg/dl (1.6-2.3); Total Protein,Serum 7.3 g/dl (6.3-8.2); Triglycerides 122 mg/dl (30-150)
[2025-05-23 11:28] LABS: Thyroid Stimulating Hormone 1.96 uIU/mL (0.465-4.68)
[2025-05-23 11:36] LABS: Free T4 (Free Thyroxine) 1.14 ng/dl (0.78-2.19)
[2025-05-23 12:07] LABS: Blood Urea Nitrogen 28 mg/dl (7-17); Creatinine,Serum 1.20 mg/dl (0.52-1.04); Estimated Glomerular Filt Rate 44 ml/min (>60); GFR (African American) 53 ML/MIN (>60)
[2025-05-23 19:04] LABS: Hemoglobin A1C 6.0 % (4.0-6.0)
== END 2025-05-23 23:59 | disposition home or self-care (01) ==
PROVIDERS: PCP Family Medicine; Visit Provider Nurse Practitioner Family
DX: E11.65 Type 2 diabetes mellitus with hyperglycemia (principal); R00.2 Palpitations; I10 Essential (primary) hypertension; E78.2 Mixed hyperlipidemia; I07.1 Rheumatic tricuspid insufficiency; I48.3 Typical atrial flutter
CPT/HCPCS: 36415; 80048; 80061; 80076; 83036; 83735; 84439; 84443; 85025; 93270

== ENCOUNTER 2025-07-28 13:57 | Outpatient (CLI) | payer MEDICARE, SELFPAY ==
--- NOTE | 2025-07-28 14:30 | CA_ITS ---
APPROVED REPORT EXAM: Comprehensive 2D, Doppler, and color-flow Echocardiogram Travel Services Professional: Meredith Magaña RVT Ht: 5 ft 4 in Wt: 216lbs BSA: 2.02 BP: 114/78 mmHg Indications: AFLUTTER,MURMUR 2D Dimensions LA Volume 49.00 mL LA Volume Index 24.26 mL/m2 (M/F) 16-34 M-Mode Dimensions RVDd 2.32 cm (0.9-2.6) LA Diam 3.53 cm (1.9-4.0) LVDd 3.72 cm (3.5-5.7) LVDs 2.39 cm (3.5-5.7) IVSd 1.00 cm (0.6-1.1) PWd 0.54 cm (0.6-1.1) EF (Teich) 66.00% FS 35.80% EDV (Teich) 58.90 mL ESV (Teich) 20.00 mL LV Diastology E Decel Time 130 (160-240 msec) E/A Ratio 1.6 Aortic Valve RANDA Index 0.63 cm2/m2 AoV Peak Ronnie. 182.0 (50-130 cm/s) AO Peak GR. 13.20 mmHg AO Mean GR. 7.20 (<5 mmHg) AO VTI 38.0 (18-25 cm) RANDA (VTI) 1.30 (2.5-4.5 cm2) Mitral Valve MV E Max Ronnie. 84.0 (40-130 cm/s) MV A Velocity 54.0 (40-130 cm/s) E/A Ratio 1.55 MV PHT 38.0 ms Pulmonary Valve PV Peak Velocity 65.0 (50-150 cm/s) Tricuspid Valve TR P. Velocity 268.00 cm/s RAP Estimate 8.00 mmHg RVSP 36.70 mmHg Left Ventricle The left ventricle is normal size. Left ventricular systolic function is normal. The left ventricular ejection fraction is within the normal range. There is increased left ventricular wall thickness. The septum is asynchronous. The left ventricular diastolic function is indeterminate. LVEF is 55%. Right Ventricle The right ventricle is mildly dilated. The right ventricular systolic function is mildly reduced. Atria Left atrium is moderately dilated. Right atrium is severely dilated. There is no color Doppler evidence of interatrial shunt. Aortic Valve The aortic valve is mildly thickened. There is no hemodynamically significant aortic valvular stenosis. Mild aortic regurgitation is present. Mitral Valve The mitral valve is mildly thickened. No evidence of mitral valve stenosis. Mild mitral regurgitation is present. Tricuspid Valve The tricuspid valve leaflets are thin and pliable. Moderate tricuspid regurgitation. RVSP is 30-35 mmHg. Pulmonic Valve The pulmonary valve is grossly normal in structure. Trace pulmonic valve regurgitation is present. Great Vessels The aortic root is normal in size. IVC is normal in size and collapses >50% with inspiration. Pericardium There is no pericardial effusion. Other Information Study Quality: Fair Conclusion Normal LV systolic function. Asynchronous septum. Mild RV dilation with mild reduction in RV function. Biatrial dilation. Moderate TR. Mild AI, mild MR Electronically signed by : Malinda Campbell MD 08/06/2025 16:14:00
== END 2025-07-28 23:59 | disposition home or self-care (01) ==
LOC: RT 13:58
PROVIDERS: PCP Family Medicine; Visit Provider Nurse Practitioner Family
DX: I08.3 Combined rheumatic disorders of mitral, aortic and tricuspid valves (principal); I48.3 Typical atrial flutter; R93.1 Abnormal findings on diagnostic imaging of heart and coronary circulation
CPT/HCPCS: 93306